=== PATIENT | female | born 1965 | race African-American/Black ===

== ENCOUNTER → 2016-09-22 | Outpatient (CLI) | payer OTHER | LOC: HYPER 07:05 | DX: I87.331 Chronic venous hypertension (idiopathic) with ulcer and inflammation of right lower extremity (principal); L97.211 Non-pressure chronic ulcer of right calf limited to breakdown of skin; I82.502 Chronic embolism and thrombosis of unspecified deep veins of left lower extremity; E66.01 Morbid (severe) obesity due to excess calories ==

== ENCOUNTER → 2016-10-08 | Outpatient (CLI) | payer OTHER | LOC: ULTRA 11:33 | DX: I82.503 Chronic embolism and thrombosis of unspecified deep veins of lower extremity, bilateral (principal); I87.331 Chronic venous hypertension (idiopathic) with ulcer and inflammation of right lower extremity; Z97.14 Presence of artificial left leg (complete) (partial) ==

== ENCOUNTER → 2016-10-15 | Outpatient (CLI) | payer OTHER | LOC: HYPER | DX: I87.331 Chronic venous hypertension (idiopathic) with ulcer and inflammation of right lower extremity (principal); L97.211 Non-pressure chronic ulcer of right calf limited to breakdown of skin; I82.502 Chronic embolism and thrombosis of unspecified deep veins of left lower extremity; E66.01 Morbid (severe) obesity due to excess calories; F15.90 Other stimulant use, unspecified, uncomplicated ==

== ENCOUNTER → 2016-10-15 | Outpatient (CLI) | payer OTHER | LOC: ULTRA 13:13 | DX: L97.212 Non-pressure chronic ulcer of right calf with fat layer exposed (principal) ==

== ENCOUNTER → 2016-10-22 | Outpatient (CLI) | payer OTHER | LOC: HYPER 07:01 | DX: I87.331 Chronic venous hypertension (idiopathic) with ulcer and inflammation of right lower extremity (principal); L97.212 Non-pressure chronic ulcer of right calf with fat layer exposed; E66.01 Morbid (severe) obesity due to excess calories; I82.502 Chronic embolism and thrombosis of unspecified deep veins of left lower extremity; Z68.44 Body mass index [BMI] 60.0-69.9, adult ==

== ENCOUNTER → 2016-11-05 | Outpatient (CLI) | payer OTHER | LOC: HYPER 07:18 | DX: I87.331 Chronic venous hypertension (idiopathic) with ulcer and inflammation of right lower extremity (principal); L97.211 Non-pressure chronic ulcer of right calf limited to breakdown of skin; I82.502 Chronic embolism and thrombosis of unspecified deep veins of left lower extremity; E66.01 Morbid (severe) obesity due to excess calories ==

== ENCOUNTER → 2016-11-19 | Outpatient (CLI) | payer OTHER | LOC: HYPER 07:03 | DX: I87.331 Chronic venous hypertension (idiopathic) with ulcer and inflammation of right lower extremity (principal); L97.212 Non-pressure chronic ulcer of right calf with fat layer exposed; E66.01 Morbid (severe) obesity due to excess calories; Z86.718 Personal history of other venous thrombosis and embolism; Z68.44 Body mass index [BMI] 60.0-69.9, adult ==

== ENCOUNTER 2016-12-18 20:12 | Inpatient (IN) | payer OTHER ==
[~2016-12-18] VITALS: Ht 170.2 cm; Wt 205.5 kg
[2016-12-18 20:13] VITALS: BP 78/34
[2016-12-18] MEDS ORDERED: WELLBUTRIN 75 M75 M1 PO (20:54)
[2016-12-18] MEDS ORDERED: NEURONTIN 300300 M1 PO (20:56)
[2016-12-18] MEDS ORDERED: FLEXERIL PO (20:56)
[2016-12-18] MEDS ORDERED: LIDODERM 5%1 PATC1 TRANSDERM (20:56)
[2016-12-18] MEDS ORDERED: IRON325 PO (20:56)
[2016-12-18] MEDS ORDERED: HYDROCHLOROTHIA25 M2 PO (20:56)
[2016-12-18] MEDS ORDERED: MIRALAX17 GM PO (20:57)
[2016-12-18] MEDS ORDERED: MOBIC15 MG PO (20:57)
[2016-12-18] MEDS ORDERED: OXYCONTIN10 M1 PO (20:57)
[2016-12-18] MEDS ORDERED: TUMS PO (20:58)
[2016-12-18] MEDS ORDERED: VITAMIN C1000 MG PO (20:58)
[2016-12-18] MEDS ORDERED: XARELTO20 MG PO (20:58)
[2016-12-18] MEDS ORDERED: CHOLECALCIFEROL PO (20:59)
[2016-12-18] MEDS ORDERED: LISINOPRIL20 MG PO (20:59)
[2016-12-18] MEDS ORDERED: CALCIUM CARBONATE PO (20:59)
[2016-12-18] MEDS ORDERED: REVIA 50 MG TAB50 M1 PO (21:00)
[2016-12-18] MEDS ORDERED: GALZIN50 MG PO (21:00)
[2016-12-18] MEDS ORDERED: HYDROCODONE-APA1 TA1 PO (21:00)
[2016-12-18] MEDS ORDERED: ASPIR 8181 MG PO (21:00)
[2016-12-18 21:42] LABS: HEMATOCRIT 24.2 % (37.0-47.0); HEMOGLOBIN 7.8 gm/dL (12.0-15.0); MANUAL DIFF YES; MCHC 32.4 g/dL (28.0-37.0); MCV 83.3 fL (80.0-100.0); PLATELET COUNT 249 thou/uL (150-400); RDW 17.9 % (10.5-14.5); WBC 14.1 thou/uL (4.0-11.0)
[2016-12-18 21:55] LABS: ANION GAP 8 mmol/L (7-16); BUN 59 mg/dL (7-18); CHLORIDE 102 mmol/L (98-107); CO2 27 mmol/L (21-32); CREATININE 4.4 mg/dL (0.6-1.0); GLUCOSE 131 mg/dL (74-106); POTASSIUM 4.4 mmol/L (3.5-5.1); SODIUM 137 mmol/L (136-145)
[2016-12-18 22:13] LABS: ALBUMIN 2.6 g/dL (3.4-5.0); ALKALINE PHOSPHATASE 68 U/L (46-116); DIRECT BILIRUBIN < 0.1 mg/dL (<0.1-0.3); SGOT 16 U/L (15-37); SGPT 15 U/L (30-65); TOTAL BILIRUBIN 0.3 mg/dL (<0.1-1.0); TOTAL PROTEIN 7.1 g/dL (6.4-8.2)
[2016-12-18 22:17] LABS: URINE BILIRUBIN 1+ (Negative); URINE BLOOD NEGATIVE (Negative); URINE COLOR YELLOW; URINE GLUCOSE-RANDOM* NEGATIVE (Negative); URINE KETONES TRACE (Negative); URINE NITRITE NEGATIVE (Negative); URINE PROTEIN (DIPSTICK) TRACE (Negative); URINE SPECIFIC GRAVITY 1.025 (1.003-1.035); URINE UROBILINOGEN 0.2 E.U./dl (0.2-1.0)
[2016-12-18 22:20] LABS: ABSOLUTE NEUTROPHILS 12.8 thou/uL (1.4-8.2); ANISOCYTOSIS 2+; TOTAL CELL COUNT 100
[2016-12-18 22:21] LABS: POLYCHROMASIA OCCASIONAL
[2016-12-18 22:24] LABS: ICTOTEST (BILI CONFIRMATORY) Negative (Negative)
[2016-12-18 22:25] LABS: SQUAMOUS 4-10 Moderate /LPF (0-3)
[2016-12-18 22:26] LABS: CASTS None Seen /LPF (None Seen); CRYSTALS None Seen /LPF (None Seen); URINE RBC None Seen /HPF (0-2)
[2016-12-18 23:50] VITALS: BP 98/52
[2016-12-19] VITALS (56 sets, daily range): BP systolic 74–137; BP diastolic 22–80
[2016-12-19 02:10] LABS: CALCIUM 8.5 mg/dL (8.5-10.1); CREATININE 3.6 mg/dL (0.6-1.0); POTASSIUM 4.3 mmol/L (3.5-5.1)
[2016-12-19 06:30] LABS: HEMATOCRIT 22.1 % (37.0-47.0); HEMOGLOBIN 7.3 gm/dL (12.0-15.0); MCH 27.1 pg (26.0-34.0); MCHC 33.1 g/dL (28.0-37.0); MCV 81.9 fL (80.0-100.0); PLATELET COUNT 227 thou/uL (150-400); RDW 17.9 % (10.5-14.5); WBC 10.5 thou/uL (4.0-11.0)
[2016-12-19 06:50] LABS: INR 1.3
[2016-12-19 06:53] LABS: APTT 53.5 Seconds (24.5-32.8); FIBRINOGEN 454.1 mg/dL (210-360); PROTIME 13.3 Seconds (9.3-11.4)
[2016-12-19 06:54] LABS: ALKALINE PHOSPHATASE 60 U/L (46-116); AMYLASE 33 U/L (25-115); ANION GAP 8 mmol/L (7-16); BUN 51 mg/dL (7-18); CHLORIDE 107 mmol/L (98-107); CO2 24 mmol/L (21-32); GLUCOSE 142 mg/dL (74-106); POTASSIUM 4.4 mmol/L (3.5-5.1); SGOT 14 U/L (15-37); SODIUM 139 mmol/L (136-145); TOTAL BILIRUBIN 0.3 mg/dL (<0.1-1.0)
[2016-12-19 06:55] LABS: ALBUMIN 2.2 g/dL (3.4-5.0); CHOLESTEROL 66 mg/dL (<200); HDL CHOLESTEROL 14 mg/dL (>40); LDL CHOLESTEROL 38 mg/dL (<100); SGPT 12 U/L (30-65); TC:HDL 4.7 Ratio (Not establshd); TOTAL PROTEIN 6.3 g/dL (6.4-8.2); TRIGLYCERIDE 71 mg/dL (<150); VLDL 14 mg/dL (<40)
[2016-12-19 07:06] LABS: MANUAL DIFF YES
[2016-12-19 07:45] LABS: ABSOLUTE NEUTROPHILS 9.1 thou/uL (1.4-8.2); ANISOCYTOSIS 1+; ATYPICAL LYMPHS 1 %; METAMYELOCYTES 1 %; TOTAL CELL COUNT 100
[2016-12-19 11:40] LABS: CALCIUM 8.2 mg/dL (8.5-10.1); CREATININE 2.9 mg/dL (0.6-1.0); POTASSIUM 4.4 mmol/L (3.5-5.1)
[2016-12-19 12:13] LABS: URINE CREATININE-RANDOM* 132.4 mg/dL
[2016-12-19 13:55] LABS: ABG SAMPLE TYPE ARTERIAL; BE(vivo) -3.1 mmol/L (-2 to +3); HCO3 21.1 mmol/L (22.0-26.0); LACTATE 1.16 mmol/L (0.5-2.0); O2(CT) 12.3 mL/dL (15.0-23.0); O2Hb 92.5 % (92.0-98.0); PCO2 34.2 mmHg (35.0-45.0); PO2 71.9 mmHg (80.0-100.0); STICK SITE R.RADIAL; pH 7.408 (7.360-7.450); sO2 94.8 % (92.0-98.0); tCO2 22.1 mmol/L (24.0-30.0)
[2016-12-19 15:46] LABS: HEMOGLOBIN 6.9 gm/dL (12.0-15.0); RBC 2.53 mil/uL (4.20-5.00)
[2016-12-19 15:47] LABS: HEMATOCRIT 21.2 % (37.0-47.0); MCH 27.3 pg (26.0-34.0); MCHC 32.5 g/dL (28.0-37.0); MCV 83.9 fL (80.0-100.0); PLATELET COUNT 200 thou/uL (150-400); RDW 17.9 % (10.5-14.5); WBC 9.6 thou/uL (4.0-11.0)
[2016-12-19 15:49] LABS: MANUAL DIFF YES
[2016-12-19 15:50] LABS: URINE BILIRUBIN NEGATIVE (Negative); URINE BLOOD 2+ (Negative); URINE COLOR YELLOW; URINE GLUCOSE-RANDOM* NEGATIVE (Negative); URINE KETONES NEGATIVE (Negative); URINE NITRITE NEGATIVE (Negative); URINE PROTEIN (DIPSTICK) 1+ (Negative); URINE SPECIFIC GRAVITY <= 1.005 (1.003-1.035); URINE UROBILINOGEN 0.2 E.U./dl (0.2-1.0)
[2016-12-19 15:55] LABS: BACTERIA 1-9 Few /HPF (None Seen); CASTS None Seen /LPF (None Seen); CRYSTALS None Seen /LPF (None Seen); SQUAMOUS 0-3 Few /LPF (0-3); URINE RBC 3-10 Few /HPF (0-2); URINE WBC 6-15 Few /HPF (0-5)
[2016-12-19 16:02] LABS: APTT 47.6 Seconds (24.5-32.8); INR 1.2; POTASSIUM 4.3 mmol/L (3.5-5.1); PROTIME 12.9 Seconds (9.3-11.4)
[2016-12-19 16:07] LABS: FIBRINOGEN 472.9 mg/dL (210-360)
[2016-12-19 16:11] LABS: CREATININE 2.5 mg/dL (0.6-1.0)
[2016-12-19 16:13] LABS: TOTAL BILIRUBIN 0.2 mg/dL (<0.1-1.0); TOTAL PROTEIN 5.8 g/dL (6.4-8.2)
[2016-12-19 16:16] LABS: ABSOLUTE NEUTROPHILS 8.2 thou/uL (1.4-8.2); ANISOCYTOSIS 1+; TOTAL CELL COUNT 100
[2016-12-19 19:05] LABS: APTT 50.1 Seconds (24.5-32.8); CALCIUM 7.3 mg/dL (8.5-10.1); CREATININE 2.2 mg/dL (0.6-1.0); INR 1.2; POTASSIUM 4.4 mmol/L (3.5-5.1); PROTIME 12.8 Seconds (9.3-11.4)
[2016-12-19 19:10] LABS: FIBRINOGEN 479.5 mg/dL (210-360)
[2016-12-19 21:51] LABS: HEMATOCRIT 25.5 % (37.0-47.0); HEMOGLOBIN 8.3 gm/dL (12.0-15.0)
[2016-12-19 22:55] LABS: CALCIUM 7.1 mg/dL (8.5-10.1); POTASSIUM 4.4 mmol/L (3.5-5.1)
[2016-12-19 23:03] LABS: APTT 48.9 Seconds (24.5-32.8); INR 1.2; PROTIME 12.5 Seconds (9.3-11.4)
[2016-12-19 23:08] LABS: FIBRINOGEN 472.9 mg/dL (210-360)
[2016-12-20] VITALS (41 sets, daily range): BP systolic 83–145; BP diastolic 33–82
[2016-12-20 04:06] LABS: GLYCOHEMOGLOBIN (HGB A1C) 6.1 % (4.8-5.6)
[2016-12-20 05:55] LABS: HEMATOCRIT 25.9 % (37.0-47.0); HEMOGLOBIN 8.6 gm/dL (12.0-15.0); MCH 27.4 pg (26.0-34.0); MCHC 33.1 g/dL (28.0-37.0); MCV 82.9 fL (80.0-100.0); PLATELET COUNT 217 thou/uL (150-400); RBC 3.12 mil/uL (4.20-5.00); RDW 17.9 % (10.5-14.5); WBC 10.7 thou/uL (4.0-11.0)
[2016-12-20 06:02] LABS: MANUAL DIFF YES
[2016-12-20 06:28] LABS: CALCIUM 7.3 mg/dL (8.5-10.1); CREATININE 1.7 mg/dL (0.6-1.0); POTASSIUM 4.3 mmol/L (3.5-5.1)
[2016-12-20 07:56] LABS: ABSOLUTE NEUTROPHILS 9.4 thou/uL (1.4-8.2); ANISOCYTOSIS 1+; TOTAL CELL COUNT 100
[2016-12-20 07:57] LABS: POIKILOCYTOSIS SLIGHT; POLYCHROMASIA OCCASIONAL
[2016-12-21 03:40] VITALS: BP 100/51
[2016-12-21 06:13] LABS: HEMATOCRIT 26.2 % (37.0-47.0); HEMOGLOBIN 8.6 gm/dL (12.0-15.0); MANUAL DIFF YES; MCH 27.2 pg (26.0-34.0); MCHC 32.8 g/dL (28.0-37.0); MCV 82.8 fL (80.0-100.0); PLATELET COUNT 209 thou/uL (150-400); RBC 3.17 mil/uL (4.20-5.00); RDW 17.7 % (10.5-14.5); WBC 9.8 thou/uL (4.0-11.0)
[2016-12-21 06:20] LABS: ALBUMIN 1.9 g/dL (3.4-5.0); CALCIUM 7.3 mg/dL (8.5-10.1); CREATININE 1.2 mg/dL (0.6-1.0); PHOSPHORUS 1.6 mg/dL (2.5-4.9); POTASSIUM 4.4 mmol/L (3.5-5.1)
[2016-12-21 06:58] LABS: ABSOLUTE NEUTROPHILS 8.4 thou/uL (1.4-8.2); PLATELET ESTIMATE NORMAL; TOTAL CELL COUNT 100
[2016-12-21 07:24] VITALS: BP 105/52
[2016-12-21 11:24] VITALS: BP 106/55
[2016-12-21 15:22] VITALS: BP 112/90
[2016-12-21 20:07] VITALS: BP 144/80
[2016-12-22 04:23] VITALS: BP 121/58
[2016-12-22 05:52] LABS: HEMATOCRIT 27.4 % (37.0-47.0); HEMOGLOBIN 8.9 gm/dL (12.0-15.0); MCH 27.1 pg (26.0-34.0); MCHC 32.6 g/dL (28.0-37.0); MCV 83.2 fL (80.0-100.0); RBC 3.29 mil/uL (4.20-5.00); WBC 8.8 thou/uL (4.0-11.0)
[2016-12-22 06:15] LABS: CALCIUM 7.3 mg/dL (8.5-10.1); CREATININE 1.3 mg/dL (0.6-1.0); POTASSIUM 4.5 mmol/L (3.5-5.1)
[2016-12-22 07:19] VITALS: BP 114/50
[2016-12-22 11:22] VITALS: BP 128/69
[2016-12-22 15:15] VITALS: BP 109/57
[2016-12-22 19:24] VITALS: BP 134/60
[2016-12-23 03:50] VITALS: BP 112/59
[2016-12-23 07:29] VITALS: BP 101/71
[2016-12-23 16:59] VITALS: BP 122/66
[2016-12-23 19:39] VITALS: BP 111/58
[2016-12-24 04:14] VITALS: BP 114/55
[2016-12-24 08:05] VITALS: BP 138/65
[2016-12-24 10:08] LABS: HEMATOCRIT 25.2 % (37.0-47.0); HEMOGLOBIN 8.3 gm/dL (12.0-15.0); MCH 27.2 pg (26.0-34.0); MCHC 32.8 g/dL (28.0-37.0); MCV 82.9 fL (80.0-100.0); RBC 3.05 mil/uL (4.20-5.00); WBC 16.8 thou/uL (4.0-11.0)
[2016-12-24 10:17] LABS: CALCIUM 7.7 mg/dL (8.5-10.1); CREATININE 1.1 mg/dL (0.6-1.0)
[2016-12-24 11:10] VITALS: BP 127/75
[2016-12-24 15:45] VITALS: BP 126/75
[2016-12-24 20:00] VITALS: BP 123/64
[2016-12-25 04:00] VITALS: BP 123/67
[2016-12-25 07:15] VITALS: BP 135/66
[2016-12-25 10:28] LABS: HEMATOCRIT 26.2 % (37.0-47.0); HEMOGLOBIN 8.4 gm/dL (12.0-15.0); MCH 26.7 pg (26.0-34.0); MCHC 32.2 g/dL (28.0-37.0); RBC 3.16 mil/uL (4.20-5.00); RDW 18.4 % (10.5-14.5); WBC 13.7 thou/uL (4.0-11.0)
[2016-12-25 10:38] LABS: CALCIUM 8.3 mg/dL (8.5-10.1); CREATININE 0.9 mg/dL (0.6-1.0); POTASSIUM 3.8 mmol/L (3.5-5.1)
[2016-12-25 12:35] VITALS: BP 147/78
[2016-12-25] MEDS ORDERED: CEPHALEXIN 500500 M3 PO (16:52)
[2016-12-25] MEDS ORDERED: DOXYCYCLINE 10100 MG PO (16:52)
[2016-12-25] MEDS ORDERED: DUONEB 2.5-0.5 M3 ML INH (16:53)
== END 2016-12-25 19:10 | DRG 871 ==
LOC: ER 20:12 → 4W 22:36 → EROBS 22:36 → 2N 22:36 → ICU 12-19 12:40 → 4W 12-20 12:46
PROVIDERS: Emergency Medicine; Hospitalist; Internal Medicine; Internal Medicine Infectious Disease; Nurse Practitioner Family
PROC: 02HV33Z Insertion of Infusion Device into Superior Vena Cava, Percutaneous Approach (ICD-10-PCS; 2016-12-18)
PROC: 30233N1 Transfusion of Nonautologous Red Blood Cells into Peripheral Vein, Percutaneous Approach (ICD-10-PCS; 2016-12-19)
PROC: 02PYX3Z Removal of Infusion Device from Great Vessel, External Approach (ICD-10-PCS; principal; 2016-12-24)
DX: A41.9 Sepsis, unspecified organism (principal); R65.21 Severe sepsis with septic shock; E43 Unspecified severe protein-calorie malnutrition; N17.0 Acute kidney failure with tubular necrosis; J96.01 Acute respiratory failure with hypoxia; N39.0 Urinary tract infection, site not specified; L03.115 Cellulitis of right lower limb; Z68.45 Body mass index [BMI] 70 or greater, adult; E66.01 Morbid (severe) obesity due to excess calories; I83.022 Varicose veins of left lower extremity with ulcer of calf; I10 Essential (primary) hypertension; G47.33 Obstructive sleep apnea (adult) (pediatric); I87.2 Venous insufficiency (chronic) (peripheral); D64.9 Anemia, unspecified; J44.9 Chronic obstructive pulmonary disease, unspecified; B95.62 Methicillin resistant Staphylococcus aureus infection as the cause of diseases classified elsewhere; B96.4 Proteus (mirabilis) (morganii) as the cause of diseases classified elsewhere; Z79.899 Other long term (current) drug therapy; Z83.3 Family history of diabetes mellitus; Z82.49 Family history of ischemic heart disease and other diseases of the circulatory system; Z99.81 Dependence on supplemental oxygen
CPT/HCPCS: 10045; 10078; 10081; 27000

== ENCOUNTER → 2017-02-19 | Outpatient (CLI) | payer OTHER ==
[~2017-02-19] MED LIST: ASPIR 8181 MG PO; CALCIUM CARBONATE PO; CEPHALEXIN 500500 M3 PO; CHOLECALCIFEROL PO; DOXYCYCLINE 10100 MG PO; DUONEB 2.5-0.5 M3 ML INH; FLEXERIL PO; GALZIN50 MG PO; HYDROCHLOROTHIA25 M2 PO; HYDROCODONE-APA1 TA1 PO; IRON325 PO; LIDODERM 5%1 PATC1 TRANSDERM; LISINOPRIL20 MG PO; MIRALAX17 GM PO; MOBIC15 MG PO; NEURONTIN 300300 M1 PO; OXYCONTIN10 M1 PO; REVIA 50 MG TAB50 M1 PO; TUMS PO; VITAMIN C1000 MG PO; WELLBUTRIN 75 M75 M1 PO; XARELTO20 MG PO
== END ==
LOC: HYPER 07:00
DX: I87.331 Chronic venous hypertension (idiopathic) with ulcer and inflammation of right lower extremity (principal); L97.212 Non-pressure chronic ulcer of right calf with fat layer exposed; E66.01 Morbid (severe) obesity due to excess calories; I82.502 Chronic embolism and thrombosis of unspecified deep veins of left lower extremity

== ENCOUNTER → 2017-03-23 | Outpatient (CLI) | payer OTHER | LOC: HYPER 02-11 07:03 | DX: I87.331 Chronic venous hypertension (idiopathic) with ulcer and inflammation of right lower extremity (principal); L97.212 Non-pressure chronic ulcer of right calf with fat layer exposed; E66.01 Morbid (severe) obesity due to excess calories; Z86.718 Personal history of other venous thrombosis and embolism; Z68.44 Body mass index [BMI] 60.0-69.9, adult ==

== ENCOUNTER → 2017-05-11 | Outpatient (CLI) | payer OTHER | LOC: HYPER 07:19 | DX: I87.331 Chronic venous hypertension (idiopathic) with ulcer and inflammation of right lower extremity (principal); L97.212 Non-pressure chronic ulcer of right calf with fat layer exposed; E66.01 Morbid (severe) obesity due to excess calories; I82.502 Chronic embolism and thrombosis of unspecified deep veins of left lower extremity; Z68.44 Body mass index [BMI] 60.0-69.9, adult ==

== ENCOUNTER → 2017-08-03 | Outpatient (CLI) | payer OTHER ==
[~2017-08-03] MED LIST changes: +ROCEPHIN 11 GM/1001 IV
== END ==
LOC: HYPER 06:57
DX: I87.321 Chronic venous hypertension (idiopathic) with inflammation of right lower extremity (principal); L97.812 Non-pressure chronic ulcer of other part of right lower leg with fat layer exposed; E66.01 Morbid (severe) obesity due to excess calories

== ENCOUNTER 2018-03-22 16:31 | Inpatient (IN) | payer OTHER ==
[~2018-03-22] VITALS: Ht 170.2 cm; Wt 209.3 kg
[2018-03-22] VITALS (21 sets, daily range): BP systolic 70–131; BP diastolic 26–91
--- NOTE | ~2018-03-22 | HC ---
[facility] [place] [address] CONSULTATION Name: XIN SLATER Room #: 427-P ADM IN M.R.#: [id number] Admission: 03/22/18 Attend Phys: Hai Gonzales MD Discharge: Date of : 63 Report #: [id number] THIS REPORT FOR: //name// CC: Hai DUONG SEYMOUR REASON FOR CONSULTATION: Open wound of right posterior leg with necrosis and septic shock. HISTORY OF PRESENT ILLNESS: The patient is a 52-year-old patient of Dr. Timothy Painting, who has been seen in [facility]. She suffers from morbid obesity and a chronic venous stasis ulceration of the right posterior leg. She has a history of deep vein thrombosis in the past. Leg wound has been chronic over many months. At home, she noted that her wound was getting worse and worse with increased drainage and foul smell. She was having fevers at home, felt ill, has been admitted to the medical service in [place] [address] and acute renal failure, creatinine of 3.4. Has been having increasing pain and drainage from the leg, feeling sicker and sicker, therefore admitted. She has been started on intravenous antibiotics, Zosyn and vancomycin, since admission. The patient is nondiabetic, well known to Dr. Painting. PAST MEDICAL HISTORY: Morbid obesity, chronic venous stasis ulceration of right leg, history of deep vein thrombosis, history of hypertension, history of hypothyroidism. PAST SURGICAL HISTORY: Unknown. MEDICATIONS: Include Wellbutrin, Flexeril, iron, Neurontin, hydrochlorothiazide, Lidoderm, MiraLax, OxyContin, vitamin C, Xarelto, Zestril, Galzin, and aspirin. ALLERGIES: See chart. PHYSICAL EXAMINATION: GENERAL: Shows a morbidly obese -Vietnamese woman who is alert and conversant, in no acute distress. HEENT: Mucous membranes are moist. NECK: Supple. LUNGS: Respirations are unlabored. ABDOMEN: Obese. EXTREMITIES: Examination of the extremities show 2+ edema of bilateral lower extremities. On the posterior aspect of the right calf, there is a very large deep chronic appearing ulcer measuring approximately 15 cm x 20 cm and 3 cm deep. The entire surface of the ulcer is coated with a dark black diane foul-smelling necrotic tissue. [address] [address] CONSULTATION Name: XIN SLATER Room #: 427-P ADM IN M.R.#: [id number] Admission: 03/22/18 Attend Phys: Hai Gonzales MD Discharge: Date of : 63 Report #: [id number] IMPRESSION: 1. Morbid obesity. 2. The patient is nondiabetic. 3. History of deep venous thrombosis. 4. Septic shock. 5. Acute renal failure. 6. Chronic venous stasis ulceration of right leg with secondary infection, cellulitis, and septic shock. PLAN: We will dress the wound with core strength Dakin's packing. Continue IV antibiotics. General surgery, Dr. Bernard Kline, has been consulted for consideration of operating room debridement to remove the necrotic tissue and therefore speed the process of fighting the infection by removing the septic burden. Wound care team will follow. <ELECTRONICALLY SIGNED> By: Yan Gannon MD 03/28/18 1657 1821 0012 Yan Gannon MD /nt
[~2018-03-22 16:31] MED LIST changes: -ROCEPHIN 11 GM/1001 IV
[2018-03-22 17:12] LABS: HEMATOCRIT 33.1 % (37.0-47.0); HEMOGLOBIN 10.5 gm/dL (12.0-15.0); MCH 25.5 pg (26.0-34.0); MCHC 31.7 g/dL (28.0-37.0); MCV 80.3 fL (80.0-100.0); PLATELET COUNT 261 thou/uL (150-400); RBC 4.13 mil/uL (4.20-5.00); RDW 17.4 % (10.5-14.5); WBC 19.6 thou/uL (4.0-11.0)
[2018-03-22 17:22] LABS: CALCIUM 9.4 mg/dL (8.5-10.1); CREATININE 3.4 mg/dL (0.6-1.0); POTASSIUM 4.7 mmol/L (3.5-5.1)
[2018-03-22 17:28] LABS: ALBUMIN 2.8 g/dL (3.4-5.0); TOTAL BILIRUBIN 0.6 mg/dL (<0.1-1.0)
[2018-03-22 18:01] LABS: ANISOCYTOSIS 1+; POLYCHROMASIA OCCASIONAL
[2018-03-22 19:01] LABS: APTT 36.3 Seconds (24.5-32.8); FIBRINOGEN 445.8 mg/dL (210-360); INR 1.2; PROTIME 12.4 Seconds (9.3-11.4)
[2018-03-22 19:03] LABS: BE(vivo) -3.9 mmol/L (-2 to +3); HCO3 21.1 mmol/L (22.0-26.0); pH 7.362 (7.360-7.450); sO2 68.3 % (92.0-98.0)
[2018-03-22 19:04] LABS: PO2 36.7 mmHg (80.0-100.0)
[2018-03-22 21:41] LABS: CALCIUM 8.3 mg/dL (8.5-10.1); CREATININE 3.4 mg/dL (0.6-1.0); POTASSIUM 4.3 mmol/L (3.5-5.1)
[2018-03-22 21:57] LABS: BE(vivo) -5.3 mmol/L (-2 to +3); HCO3 20.1 mmol/L (22.0-26.0); PCO2 38.3 mmHg (35.0-45.0); PO2 100.8 mmHg (80.0-100.0); pH 7.337 (7.360-7.450); sO2 97.3 % (92.0-98.0)
[2018-03-23] VITALS (46 sets, daily range): BP systolic 74–163; BP diastolic 23–93
[2018-03-23] LABS: HEMATOCRIT 30.2 % (37.0-47.0); HEMOGLOBIN 9.8 gm/dL (12.0-15.0)
[2018-03-23 00:02] LABS: URINE BILIRUBIN NEGATIVE (Negative); URINE BLOOD 3+ (Negative); URINE CLARITY CLOUDY; URINE COLOR YELLOW; URINE GLUCOSE-RANDOM* NEGATIVE (Negative); URINE KETONES TRACE (Negative); URINE NITRITE-REFLEX NEGATIVE (Negative); URINE PROTEIN (DIPSTICK) 2+ (Negative); URINE SPECIFIC GRAVITY >= 1.030 (1.005-1.035); URINE UROBILINOGEN 0.2 E.U./dl (0.2-1.0)
[2018-03-23 00:20] LABS: URINE LEUKOCYTES-REFLEX 2+ (Negative)
[2018-03-23 00:23] LABS: CASTS None Seen /LPF (None Seen); CRYSTALS None Seen /LPF (None Seen)
[2018-03-23 00:24] LABS: SQUAMOUS 4-10 Moderate /LPF (0-3); URINE RBC 3-10 Few /HPF (0-2)
[2018-03-23 00:25] LABS: AMORPHOUS URATES Moderate /LPF (None Seen); BACTERIA-REFLEX 1-9 Few /HPF (None Seen); COARSE GRANULAR CASTS 0-3 Few /LPF (None Seen); HYALINE CASTS 0-3 Few /LPF (None Seen)
[2018-03-23 01:10] LABS: CALCIUM 7.8 mg/dL (8.5-10.1); CREATININE 3.5 mg/dL (0.6-1.0); POTASSIUM 4.5 mmol/L (3.5-5.1)
[2018-03-23 05:04] LABS: ABSOLUTE NEUTROPHILS 18.2 thou/uL (1.4-8.2); BASOPHILS 0.2 % (0.0-2.0); HEMATOCRIT 29.2 % (37.0-47.0); HEMOGLOBIN 9.1 gm/dL (12.0-15.0); MCH 25.4 pg (26.0-34.0); MCHC 31.3 g/dL (28.0-37.0); MCV 81.1 fL (80.0-100.0); MONOCYTES 1.5 % (1.0-8.0); PLATELET COUNT 211 thou/uL (150-400); POLYS 94.3 % (36.0-66.0); RDW 17.5 % (10.5-14.5); WBC 19.3 thou/uL (4.0-11.0)
[2018-03-23 05:34] LABS: CALCIUM 7.7 mg/dL (8.5-10.1); CREATININE 3.9 mg/dL (0.6-1.0); MAGNESIUM 1.4 mg/dL (1.8-2.4); POTASSIUM 4.8 mmol/L (3.5-5.1)
[2018-03-23 18:52] LABS: CALCIUM 7.4 mg/dL (8.5-10.1); CREATININE 3.5 mg/dL (0.6-1.0); POTASSIUM 5.2 mmol/L (3.5-5.1)
[2018-03-24] VITALS (27 sets, daily range): BP systolic 107–1339; BP diastolic 50–116
[2018-03-24 05:34] LABS: ABSOLUTE NEUTROPHILS 16.9 thou/uL (1.4-8.2); BASOPHILS 0.4 % (0.0-2.0); EOSINOPHILS 3.1 % (0.0-3.0); HEMATOCRIT 29.4 % (37.0-47.0); HEMOGLOBIN 9.2 gm/dL (12.0-15.0); LYMPHOCYTES 1.3 % (24.0-44.0); MCHC 31.2 g/dL (28.0-37.0); MONOCYTES 1.6 % (1.0-8.0); PLATELET COUNT 180 thou/uL (150-400); POLYS 93.6 % (36.0-66.0); RBC 3.67 mil/uL (4.20-5.00); WBC 18.1 thou/uL (4.0-11.0)
[2018-03-24 05:43] LABS: CALCIUM 7.4 mg/dL (8.5-10.1); CREATININE 2.8 mg/dL (0.6-1.0); POTASSIUM 4.4 mmol/L (3.5-5.1)
[2018-03-24 09:37] LABS: MAGNESIUM 1.8 mg/dL (1.8-2.4)
[2018-03-25] VITALS (10 sets, daily range): BP systolic 117–153; BP diastolic 62–77
[2018-03-25 05:29] LABS: HEMATOCRIT 27.3 % (37.0-47.0); HEMOGLOBIN 8.9 gm/dL (12.0-15.0); MCH 25.7 pg (26.0-34.0); MCHC 32.5 g/dL (28.0-37.0); MCV 79.1 fL (80.0-100.0); RBC 3.45 mil/uL (4.20-5.00); RDW 18.6 % (10.5-14.5); WBC 15.1 thou/uL (4.0-11.0)
[2018-03-25 05:42] LABS: CALCIUM 7.3 mg/dL (8.5-10.1); CREATININE 1.9 mg/dL (0.6-1.0); MAGNESIUM 1.9 mg/dL (1.8-2.4); POTASSIUM 4.1 mmol/L (3.5-5.1)
[2018-03-26 04:45] VITALS: BP 140/75
[2018-03-26 06:24] LABS: HEMOGLOBIN 9.2 gm/dL (12.0-15.0); MCH 25.7 pg (26.0-34.0); MCHC 32.7 g/dL (28.0-37.0); MCV 78.4 fL (80.0-100.0); RBC 3.57 mil/uL (4.20-5.00); RDW 18.8 % (10.5-14.5)
[2018-03-26 06:31] LABS: CALCIUM 7.7 mg/dL (8.5-10.1); CREATININE 1.5 mg/dL (0.6-1.0); POTASSIUM 3.9 mmol/L (3.5-5.1)
[2018-03-26 10:30] VITALS: BP 151/87
[2018-03-26 12:20] VITALS: BP 151/83
[2018-03-26 17:12] VITALS: BP 158/80
[2018-03-26 19:35] VITALS: BP 172/79
[2018-03-26 23:07] LABS: GLYCOHEMOGLOBIN (HGB A1C) 6.5 % (4.8-5.6)
[2018-03-27 04:45] VITALS: BP 150/81
[2018-03-27 07:20] VITALS: BP 139/64
[2018-03-27 07:34] LABS: HEMOGLOBIN 8.9 gm/dL (12.0-15.0); MCH 25.7 pg (26.0-34.0); MCHC 32.7 g/dL (28.0-37.0); MCV 78.4 fL (80.0-100.0); RBC 3.45 mil/uL (4.20-5.00); RDW 18.3 % (10.5-14.5); WBC 19.7 thou/uL (4.0-11.0)
[2018-03-27 07:43] LABS: CALCIUM 7.8 mg/dL (8.5-10.1); CREATININE 1.3 mg/dL (0.6-1.0); POTASSIUM 4.2 mmol/L (3.5-5.1)
[2018-03-27 19:50] VITALS: BP 155/76
[2018-03-28 04:57] VITALS: BP 147/79
[2018-03-28 07:27] LABS: HEMATOCRIT 26.1 % (37.0-47.0); HEMOGLOBIN 8.8 gm/dL (12.0-15.0); MCH 26.7 pg (26.0-34.0); MCHC 33.5 g/dL (28.0-37.0); MCV 79.5 fL (80.0-100.0); RBC 3.29 mil/uL (4.20-5.00); RDW 18.6 % (10.5-14.5); WBC 23.5 thou/uL (4.0-11.0)
[2018-03-28 07:28] VITALS: BP 151/79
[2018-03-28 07:37] LABS: CALCIUM 8.1 mg/dL (8.5-10.1); CREATININE 1.1 mg/dL (0.6-1.0); POTASSIUM 4.1 mmol/L (3.5-5.1)
[2018-03-28 19:15] VITALS: BP 178/83
[2018-03-29 04:11] VITALS: BP 141/79
[2018-03-29 05:59] LABS: HEMATOCRIT 26.9 % (37.0-47.0); HEMOGLOBIN 8.5 gm/dL (12.0-15.0); MCH 25.2 pg (26.0-34.0); MCHC 31.8 g/dL (28.0-37.0); MCV 79.5 fL (80.0-100.0); RBC 3.38 mil/uL (4.20-5.00); RDW 18.8 % (10.5-14.5); WBC 23.1 thou/uL (4.0-11.0)
[2018-03-29 06:14] LABS: CALCIUM 8.1 mg/dL (8.5-10.1); CREATININE 1.1 mg/dL (0.6-1.0); POTASSIUM 4.1 mmol/L (3.5-5.1)
[2018-03-29 09:51] VITALS: BP 154/78
[2018-03-29 19:58] VITALS: BP 164/74
[2018-03-30 04:51] VITALS: BP 144/83
[2018-03-30 06:16] LABS: HEMATOCRIT 28.9 % (37.0-47.0); HEMOGLOBIN 9.1 gm/dL (12.0-15.0); MCH 25.4 pg (26.0-34.0); MCHC 31.6 g/dL (28.0-37.0); MCV 80.5 fL (80.0-100.0); RBC 3.59 mil/uL (4.20-5.00); RDW 18.5 % (10.5-14.5)
[2018-03-30 06:27] LABS: CALCIUM 8.3 mg/dL (8.5-10.1); POTASSIUM 4.1 mmol/L (3.5-5.1)
[2018-03-30 07:05] VITALS: BP 161/80
[2018-03-30 12:50] LABS: URINE BILIRUBIN NEGATIVE (Negative); URINE BLOOD 2+ (Negative); URINE CLARITY CLEAR; URINE COLOR YELLOW; URINE GLUCOSE-RANDOM* NEGATIVE (Negative); URINE KETONES NEGATIVE (Negative); URINE LEUKOCYTES-REFLEX NEGATIVE (Negative); URINE NITRITE-REFLEX NEGATIVE (Negative); URINE PROTEIN (DIPSTICK) NEGATIVE (Negative); URINE UROBILINOGEN 0.2 E.U./dl (0.2-1.0)
[2018-03-30 13:11] LABS: SQUAMOUS 4-10 Moderate /LPF (0-3)
[2018-03-30 13:12] LABS: CASTS None Seen /LPF (None Seen); CRYSTALS None Seen /LPF (None Seen)
[2018-03-30 13:13] LABS: BACTERIA-REFLEX 1-9 Few /HPF (None Seen); URINE WBC-REFLEX 0-5 Rare /HPF (0-5)
[2018-03-30 16:48] VITALS: BP 146/80
[2018-03-30 19:11] VITALS: BP 152/69
[2018-03-31 04:30] VITALS: BP 158/92
[2018-03-31 07:12] VITALS: BP 162/84
[2018-03-31 10:42] LABS: HEMATOCRIT 30.8 % (37.0-47.0); HEMOGLOBIN 9.7 gm/dL (12.0-15.0); MCH 24.9 pg (26.0-34.0); MCHC 31.6 g/dL (28.0-37.0); MCV 78.8 fL (80.0-100.0); RBC 3.91 mil/uL (4.20-5.00); RDW 18.5 % (10.5-14.5); WBC 23.1 thou/uL (4.0-11.0)
[2018-03-31 10:53] LABS: ALBUMIN 2.2 g/dL (3.4-5.0); CALCIUM 8.9 mg/dL (8.5-10.1); CREATININE 1.1 mg/dL (0.6-1.0); MAGNESIUM 1.9 mg/dL (1.8-2.4); POTASSIUM 4.4 mmol/L (3.5-5.1); TOTAL BILIRUBIN 0.3 mg/dL (<0.1-1.0); TOTAL PROTEIN 6.7 g/dL (6.4-8.2)
[2018-03-31 16:39] VITALS: BP 144/82
[2018-03-31 19:29] VITALS: BP 141/71
[2018-04-01 04:17] VITALS: BP 137/77
[2018-04-01 04:57] LABS: HEMATOCRIT 29.7 % (37.0-47.0); HEMOGLOBIN 9.4 gm/dL (12.0-15.0); MCH 25.2 pg (26.0-34.0); MCHC 31.6 g/dL (28.0-37.0); MCV 79.6 fL (80.0-100.0); RBC 3.73 mil/uL (4.20-5.00); RDW 18.2 % (10.5-14.5); WBC 19.8 thou/uL (4.0-11.0)
[2018-04-01 05:09] LABS: CALCIUM 9.1 mg/dL (8.5-10.1); CREATININE 0.9 mg/dL (0.6-1.0); MAGNESIUM 1.9 mg/dL (1.8-2.4); POTASSIUM 4.7 mmol/L (3.5-5.1)
[2018-04-01 08:29] VITALS: BP 115/62
[2018-04-01 08:57] VITALS: BP 115/62
[2018-04-01] MEDS ORDERED: VITAMIN C1000 MG PO (14:52)
[2018-04-01] MEDS ORDERED: WELLBUTRIN 75 M75 M1 PO (14:52)
[2018-04-01] MEDS ORDERED: ROCEPHIN 11 GM/1001 IV (14:53)
== END 2018-04-01 15:45 | DRG 853 ==
LOC: ER 16:31 → ICU 17:45 → EROBS 17:45 → ICU 19:15 → 2N 03-25 08:20 → TBA 03-26 14:11 → 2N 03-26 14:12 → 4E 03-26 17:05
PROVIDERS: Emergency Medicine; Hospitalist; Internal Medicine; Internal Medicine Infectious Disease; Nurse Practitioner Acute Care; Nurse Practitioner Family; Surgery
PROC: 03HY32Z Insertion of Monitoring Device into Upper Artery, Percutaneous Approach (ICD-10-PCS; principal; 2018-03-23)
PROC: 0KBS0ZZ Excision of Right Lower Leg Muscle, Open Approach (ICD-10-PCS; principal; 2018-03-23)
PROC: 4A133B1 Monitoring of Arterial Pressure, Peripheral, Percutaneous Approach (ICD-10-PCS; principal; 2018-03-23)
PROC: 4A133J1 Monitoring of Arterial Pulse, Peripheral, Percutaneous Approach (ICD-10-PCS; principal; 2018-03-23)
PROC: 0KBS0ZZ Excision of Right Lower Leg Muscle, Open Approach (ICD-10-PCS; 2018-03-26)
PROC: 05HD33Z Insertion of Infusion Device into Right Cephalic Vein, Percutaneous Approach (ICD-10-PCS; 2018-03-31)
DX: A41.9 Sepsis, unspecified organism (principal); R65.21 Severe sepsis with septic shock; J96.01 Acute respiratory failure with hypoxia; N17.0 Acute kidney failure with tubular necrosis; L03.115 Cellulitis of right lower limb; E46 Unspecified protein-calorie malnutrition; L97.919 Non-pressure chronic ulcer of unspecified part of right lower leg with unspecified severity; Z68.45 Body mass index [BMI] 70 or greater, adult; I10 Essential (primary) hypertension; E66.01 Morbid (severe) obesity due to excess calories; E03.9 Hypothyroidism, unspecified; D64.9 Anemia, unspecified; I87.2 Venous insufficiency (chronic) (peripheral); S81.801A Unspecified open wound, right lower leg, initial encounter; X58.XXXA Exposure to other specified factors, initial encounter; I95.9 Hypotension, unspecified; Z28.21 Immunization not carried out because of patient refusal; Z86.718 Personal history of other venous thrombosis and embolism; Z83.3 Family history of diabetes mellitus; Z82.49 Family history of ischemic heart disease and other diseases of the circulatory system; Z79.82 Long term (current) use of aspirin; Z79.899 Other long term (current) drug therapy; Y93.89 Activity, other specified; Y92.89 Other specified places as the place of occurrence of the external cause; Y99.8 Other external cause status
CPT/HCPCS: 10078; 10081; 10783; 27000; 50010; 50101; 50386; 50403; 51412; 57119; 57120; 57138; 57143; 62110; 62850; 70005

== ENCOUNTER 2018-04-01 11:27 | Inpatient (IN) | payer OTHER ==
[~2018-04-01] VITALS: Ht 170.2 cm; Wt 210.5 kg
--- NOTE | ~2018-04-01 | HC ---
[facility] [place] [address] CONSULTATION Name: XIN SLATER Room #: 516-1 ADM IN M.R.#: [id number] Admission: 04/01/18 Attend Phys: Gregor Montelongo MD Discharge: Date of : 63 Report #: [id number] THIS REPORT FOR: //name// CC: Gregor DUONG SEYMOUR DATE OF SERVICE: 04/04/2018 TURNER OFF: Gregor Gonzalez, PhD. REASON FOR CONSULTATION: To provide information for treatment planning on the rehabilitation unit for this patient. HISTORY OF PRESENT ILLNESS: The patient is a 52-year-old morbidly obese, female admitted to [facility] due to sepsis, acute hypoxic respiratory failure, right lower extremity venous stasis ulcer, and acute renal failure. She was later admitted to the rehabilitation unit on 04/01/2018 with the plan being to restore her ability to use her walker and accomplish independent transfers at a level high enough that she can return to independent living in her apartment, where she lives with her significant other and her daughter. METHODS: The unit staff were consulted, history and physical was reviewed, clinical interview was conducted and a mini mental status exam 2 was utilized. RESULTS: The patient was seated in a chair in her room. When interviewed, she was alert and cooperative with the examination. She was able to relate recent and remote personal history, including her occupational history and family history. Her mood was self-reported to be euthymic, though she admitted to situational anxiety. There were no indicators of ongoing psychotic processes or hallucinations. Her speech was well organized and goal directed. She expressed eagerness to recover and return home. On the mini mental status exam 2, the patient scored at the borderline level of mental status, due to inability to remember 2/3 previously registered words after 1 minute, and due to her refusal to attempt the serial 7 subtraction task. This refusal may have been related to anxiety, and it is not clear whether she is not able to perform simple calculations. DIAGNOSIS AND PLAN: Adjustment disorder with anxiety, and it is recommended that supportive and cognitive therapy be supplied to alleviate her situational anxiety. <ELECTRONICALLY SIGNED> By: Gregor Gonzalez, PhD 04/16/18 1445 1453 [id number] Gregor Gonzalez, PhD /nt
--- NOTE | ~2018-04-01 | H ---
[facility] [place] [address] HISTORY AND PHYSICAL Name: XIN SLATER Room #: 516-1 ADM IN M.R.#: [id number] Admission: 04/01/18 Attend Phys: Gregor Montelongo MD Discharge: Date of : 63 Report #: [id number] THIS REPORT FOR: //name// CC: Gregor SIERRAELIDIA HUMPHREYSOUR DATE OF SERVICE: 04/01/2018 POSTADMISSION PHYSICIAN EVALUATION HISTORY OF PRESENT ILLNESS: The patient is a 52-year-old -Citizen [place] morbidly obese female originally admitted to [facility] on 03/22/2018 with septic shock, infected right leg wound, elevated troponin, history of Proteus and MRSA. She underwent I and D with graft placement on 03/26/2018, for the right lower extremity. She had significant leukocytosis that is improving. Wound care is involved. She was treated for severe sepsis. Her respiratory failure, improved/resolved. She also had acute renal failure, possibly due to acute tubular necrosis with hypertension, which has been stabilized. She is being treated for hypertension. She has a history of a DVT and Xarelto was restarted. She has improved as far as her therapy tolerance and has now been admitted for acute in-hospital inpatient rehabilitation. Please see the full admission note dictation from Sarah Guerin, nurse practitioner. PAST MEDICAL HISTORY: See the history and physical. ALLERGIES: See the history and physical. CODE STATUS: See the history and physical. SOCIAL HISTORY: See the history and physical. She does have 7 steps in her apartment and lives with her significant other and an 18-year-old daughter. MEDICATIONS: Please see the full medication listing. This includes vitamins, herbals, and supplements. REVIEW OF SYSTEMS: Did not offer any current complaints of chest pain, shortness of breath, or abdominal discomfort. PHYSICAL EXAMINATION: GENERAL: She is a pleasant, alert, morbidly obese 52-year-old -[place]izen [place] female in no obvious distress. Height 5 feet 7 inches, weight 461 pounds. She is on room air. HEENT: Appeared to be benign. CHEST: Some decreased breath sounds, otherwise sounded clear. CARDIAC: Regular rate and rhythm. ABDOMEN: Morbidly obese, bowel sounds positive, nontender. [address] [address] HISTORY AND PHYSICAL Name: XIN SLATER Room #: 516-1 ADM IN M.R.#: [id number] Admission: 04/01/18 Attend Phys: Gregor Montelongo MD Discharge: Date of : 63 Report #: [id number] GENITOURINARY AND RECTAL: Deferred. NEUROLOGIC: She has functional range of motion of both upper extremities. Strength is a grade 4-/5, equal data modeler bilaterally. Lower extremities, can lift bilateral lower extremities against gravity. She has a large posterior calf venous stasis ulcer on the right lower extremity, dressing in place. She has been min assist for sit to stand. Negative Homans. ASSESSMENT: 1. Medical complex with generalized debilitation. 2. Severe sepsis. 3. Chronic venous stasis ulceration of the right lower extremity, status post debridement and Primatrix graft placement on 03/26/2018. 4. Leukocytosis, improving. 5. Respiratory failure, improved. 6. Acute renal failure, improved/resolved. 7. Hypertension. 8. History of deep venous thrombosis. 9. Chronic knee and back pain. 10. Morbid obesity. PLAN: The patient has been admitted for acute in-hospital inpatient rehabilitation. From a postadmission physician evaluation perspective, there are no relevant changes since the preadmission screening. Please see the above review of prior and current medical and functional conditions and comorbidities. Please see the patient's previous and current functional status. As far as risk of complication, she has multiple medical comorbidities as noted above. Initial plan of care involves the interdisciplinary acute inpatient rehabilitation program with the goal of maximizing her functional independence, so she can hopefully return back to her prior living situation. Measurable functional goals would be for the patient to become modified independent with transfers, mobility, ADLs, so she can return back to the home setting. Prognosis is reasonably good with estimated length of stay probably at least 10 days to 2 weeks and likely longer if needed. Potential barriers would include the multiple medical comorbidities and decreased functional status. The patient meets diagnostic criteria for an acute in-hospital inpatient rehabilitation stay. She meets the medical necessity criteria and we will have the multiple crm consultant physicians continue to follow. She does have the tolerance for therapies and has appropriate discharge goals back to the home setting. <ELECTRONICALLY SIGNED> By: Gregor Montelongo MD 04/14/18 1319 0808 [id number] Gregor Montelongo MD /nt
--- NOTE | ~2018-04-01 | PLAN ---
[facility] [place] [address] REHAB UNIT PLAN OF CARE Name: XIN SLATER Room #: 516-1 ADM IN M.R.#: [id number] Admission: 04/01/18 Attend Phys: Gregor Monetlongo MD Discharge: Date of : 63 Report #: [id number] THIS REPORT FOR: //name// CC: Gregor KWAN DATE OF SERVICE: 04/03/2018 PROGRESS NOTE/OVERALL PLAN OF CARE The patient was seen earlier this a.m. Last recorded temperature was 36.6, pulse 95, respirations 14, blood pressure 108/64. She was sleepy, responsive. Right lower extremity dressing in place. stand pivot transfers. She is mod assist in physical therapy with gait min assist 10 feet with a front-wheeled walker. In occupational therapy, she has been dependent for socks and hose. ASSESSMENT: 1. Medical complexity with generalized debilitation. 2. Severe sepsis. 3. Chronic venous stasis ulceration of the right lower extremity, status post debridement and graft placement, 03/26/2018. 4. Leukocytosis. 5. Respiratory failure, improved/resolved. 6. Acute renal failure, improved/resolved. 7. Hypertension. 8. History of deep venous thrombosis. 9. Chronic knee and back pain. 10. Morbid obesity. PLAN: The overall plan of care is based on the preadmission screen, post-admission physician evaluation and information garnered from therapy assessments. 1. Estimated length of stay is probably at least 10 days to 2 weeks pending progress. 2. Medical prognosis is reasonably good. 3. Anticipated interventions includes the interdisciplinary acute inpatient rehabilitation program. 4. Anticipated functional outcomes would be for the patient to become modified independent with transfers, mobility and ADLs at least at the walker level as she was utilizing premorbidly. 5. Discharge destination would be back to her apartment with her significant other and her daughter. 6. Expected therapy by discipline includes PT and OT 1-1/2 hours per day each [address] [address] REHAB UNIT PLAN OF CARE Name: XIN SLATER Room #: 516-1 [facility] IN ..#: [id number] Admission: 04/01/18 Attend Phys: Gregor Montelongo MD Discharge: Date of : 63 Report #: [id number] five days a week throughout the duration of the acute inpatient rehabilitation stay. <ELECTRONICALLY SIGNED> By: Gregor Montelongo MD 04/14/18 1319 1433 0540 Gregor Montelongo MD /nt
--- NOTE | ~2018-04-01 | H ---
[facility] [place] [address] HISTORY AND PHYSICAL Name: XIN SLATER Room #: 516-1 ADM IN M.R.#: [id number] Admission: 04/01/18 Attend Phys: Gregor Montelongo MD Discharge: Date of : 63 Report #: [id number] THIS REPORT FOR: //name// CC: Gregor SIERRAELIDIA HUMPHREYSOUR DATE OF SERVICE: 04/01/2018 HISTORY OF PRESENT ILLNESS: This is a 52-year-old morbidly obese female who was admitted to [facility] with sepsis, acute hypoxic respiratory failure, right lower extremity venous stasis ulcer and acute renal insufficiency. She underwent I and D with graft placement on 03/26/2018 for the right lower extremity. She has had significant leukocytosis that is improving. Her wound is improving per Wound Care physician. Due to her generalized debility, she is now being admitted to acute inpatient rehabilitation to improve her functional mobility. Today, the patient reports pain in her right lower extremity, especially with dressing changes. She has chronic pains in bilateral knees. She has spasms down bilateral legs. She has chronic back and hip pain. She denies cough, shortness of air, chest pain, nausea or abdominal pain. She is constipated. It has been 6 days since her last bowel movement. PAST MEDICAL HISTORY: Morbid obesity, chronic venous stasis ulceration of the right leg for over 1 year, history of DVT, hypertension, hypothyroidism, degenerative joint disease. SOCIAL HISTORY: The patient lives in an apartment with her significant other and her 18-year-old daughter. There are 7 steps to get into her apartment and then all living on one level after that. She utilized a front-wheel walker premorbidly. She walked very short distances. ALLERGIES: No known drug allergies. CURRENT MEDICATIONS: Lisinopril 20 mg daily, Xarelto 20 mg daily, hydrochlorothiazide 25 mg daily, Rocephin 1 gram IV piggyback daily, morphine Silvadene topical cream, vitamin C 1000 mg daily, calcium carbonate 500 mg daily, oxycodone 10 mg twice a day, Wellbutrin 75 mg twice a day, gabapentin 300 mg 3 times a day, ferrous sulfate 325 mg 3 times a day, Voltaren gel p.r.n. q.i.d., Flexeril 5 mg q.8 hours p.r.n., Flexeril 10 mg at bedtime p.r.n., Tylenol 650 q.6 hours p.r.n., fentanyl 25-50 mcg q.4 hours p.r.n., DuoNebs q.4 hours inhalation, MiraLax 17 grams daily. CODE STATUS: Full code. REVIEW OF SYSTEMS: Remainder of 14-point review of systems negative except as listed in HPI. [address] [address] HISTORY AND PHYSICAL Name: XIN SLATER Room #: 516-1 ADM IN M.R.#: [id number] Admission: 04/01/18 Attend Phys: Gregor Montelongo MD Discharge: Date of : 63 Report #: [id number] PHYSICAL EXAMINATION: VITAL SIGNS: 115/62, pulse 79, temperature 98.7, respirations 17. She has 95% oxygen on room air. GENERAL: She is awake, alert. She is oriented x 4. She is very pleasant. She is in no acute distress. She is on room air. HEAD: Normocephalic. EYES: EOMs are intact. No icterus. ENT: No sinus tenderness. CHEST: Lungs are diminished in bases, but no crackle or wheeze. CARDIAC: S1, S2, regular rate and rhythm. ABDOMEN: Morbid obesity. Bowel sounds are positive. She is soft. No tenderness to palpation. GENITOURINARY: No CVA tenderness. She has a Berumen catheter with clear yellow urine output in her bag. EXTREMITIES: The patient has functional range of motion in bilateral upper extremities. Strength is grossly 4-/5 bilaterally. There is no clonus. Equal milled lumber grader strength bilateral. Able to lift bilateral lower extremity into gravity off of bed. Negative Homans sign. She has significant venous stasis bilateral lower extremities. She has a large posterior calf venous stasis ulcer on the right lower extremity. The patient is transferring min assist for her sit to stand. She ambulated 8 steps with min assist for balance. Bathe is mod assist. SKIN: As noted, the wound to the right lower extremity. She also has two central lines in place, right upper extremity and right chest wall. PSYCHIATRIC: Pleasant affect. NEUROLOGIC: Cranial nerves 2-12 grossly intact. LABORATORY DATA: From 04/01/2018, sodium 136, potassium 4.7, BUN 31, creatinine 0.9, mag 1.9. WBC is 19.8, hemoglobin 9.4, hematocrit 29.7, platelets 262. ASSESSMENT: 1. Medical complexity with generalized debilitation. 2. Severe sepsis. 3. Chronic venous stasis ulceration of right lower extremity, status post debridement and PriMatrix graft placement on 03/26/2018. 4. Leukocytosis, improving. 5. Respiratory failure, improving. 6. Acute renal failure. 7. Hypertension. 8. History of deep venous thrombosis. 9. Chronic knee and back pain. 10. Morbid obesity. PLAN: The patient will be admitted to acute inpatient rehabilitation for physical and occupational therapies with a goal to get back to her home. She will have multiple hospital consultants continue to follow her including Wound Care physician and student records coordinator. We will follow up lab work in the [facility] [address] [place] [address] HISTORY AND PHYSICAL Name: XNI SLATER Room #: 516-1 ADM IN M.R.#: [id number] Admission: 04/01/18 Attend Phys: Gregor Montelongo MD Discharge: Date of : 63 Report #: [id number] morning. She will continue with the Berumen catheter for now and hopefully will be able to attempt a voiding trial soon. We have ordered bariatric appointment for her room. Please see orders. <ELECTRONICALLY SIGNED> By: KAREN Dahl 04/08/18 1439 1502 1558 KAREN Dahl /nt
[2018-04-01] MEDS ORDERED: VITAMIN C1000 MG PO (14:52)
[2018-04-01] MEDS ORDERED: WELLBUTRIN 75 M75 M1 PO (14:52)
[2018-04-01] MEDS ORDERED: ROCEPHIN 11 GM/1001 IV (14:53)
[2018-04-01 19:45] VITALS: BP 139/63
[2018-04-02 07:31] VITALS: BP 136/76
[2018-04-02 19:40] VITALS: BP 134/63
[2018-04-03 09:02] VITALS: BP 108/64
[2018-04-03 12:23] LABS: HEMATOCRIT 30.4 % (37.0-47.0); HEMOGLOBIN 9.9 gm/dL (12.0-15.0); MCH 25.9 pg (26.0-34.0); MCHC 32.5 g/dL (28.0-37.0); MCV 79.6 fL (80.0-100.0); RBC 3.82 mil/uL (4.20-5.00); RDW 18.3 % (10.5-14.5); WBC 11.3 thou/uL (4.0-11.0)
[2018-04-03 12:37] LABS: ALBUMIN 2.6 g/dL (3.4-5.0); CALCIUM 9.6 mg/dL (8.5-10.1); CREATININE 1.3 mg/dL (0.6-1.0); MAGNESIUM 2.1 mg/dL (1.8-2.4); POTASSIUM 4.4 mmol/L (3.5-5.1); TOTAL BILIRUBIN 0.3 mg/dL (<0.1-1.0); TOTAL PROTEIN 7.6 g/dL (6.4-8.2)
[2018-04-03 19:40] VITALS: BP 116/60
[2018-04-04 08:50] VITALS: BP 93/56
[2018-04-04 11:20] LABS: ABSOLUTE NEUTROPHILS 4.4 thou/uL (1.4-8.2); BASOPHILS 0.5 % (0.0-2.0); EOSINOPHILS 7.4 % (0.0-3.0); HEMATOCRIT 30.4 % (37.0-47.0); HEMOGLOBIN 9.8 gm/dL (12.0-15.0); LYMPHOCYTES 36.1 % (24.0-44.0); MCH 25.9 pg (26.0-34.0); MCHC 32.2 g/dL (28.0-37.0); MCV 80.4 fL (80.0-100.0); PLATELET COUNT 266 thou/uL (150-400); RBC 3.78 mil/uL (4.20-5.00); RDW 19.4 % (10.5-14.5)
[2018-04-04 11:42] LABS: CALCIUM 9.7 mg/dL (8.5-10.1); CREATININE 1.3 mg/dL (0.6-1.0); MAGNESIUM 2.1 mg/dL (1.8-2.4); POTASSIUM 4.2 mmol/L (3.5-5.1)
[2018-04-04 12:43] LABS: ANISOCYTOSIS 2+; POLYCHROMASIA OCCASIONAL
[2018-04-04 21:50] VITALS: BP 122/56
[2018-04-05 04:30] LABS: CREATININE 1.2 mg/dL (0.6-1.0); POTASSIUM 4.3 mmol/L (3.5-5.1)
[2018-04-05 04:34] LABS: HEMATOCRIT 26.4 % (37.0-47.0); HEMOGLOBIN 8.4 gm/dL (12.0-15.0); MCH 25.4 pg (26.0-34.0); MCHC 31.7 g/dL (28.0-37.0); MCV 80.1 fL (80.0-100.0); RBC 3.3 mil/uL (4.20-5.00); RDW 18.6 % (10.5-14.5); WBC 7.8 thou/uL (4.0-11.0)
[2018-04-05 08:06] VITALS: BP 94/50
[2018-04-05 08:15] VITALS: BP 117/71
[2018-04-05 08:16] VITALS: BP 124/79
[2018-04-05 19:09] VITALS: BP 115/60
[2018-04-06 08:00] VITALS: BP 116/61
[2018-04-06 19:50] VITALS: BP 136/69
[2018-04-07 08:30] VITALS: BP 106/53
[2018-04-07 19:34] VITALS: BP 131/56
[2018-04-08 09:21] VITALS: BP 116/67
[2018-04-08 19:18] VITALS: BP 100/46
[2018-04-09 06:19] LABS: ABSOLUTE NEUTROPHILS 3.2 thou/uL (1.4-8.2); BASOPHILS 0.6 % (0.0-2.0); EOSINOPHILS 15.8 % (0.0-3.0); HEMATOCRIT 23.7 % (37.0-47.0); HEMOGLOBIN 7.8 gm/dL (12.0-15.0); LYMPHOCYTES 20.2 % (24.0-44.0); MCH 26.5 pg (26.0-34.0); MCHC 32.8 g/dL (28.0-37.0); MCV 80.8 fL (80.0-100.0); MONOCYTES 7.2 % (1.0-8.0); PLATELET COUNT 215 thou/uL (150-400); POLYS 56.2 % (36.0-66.0); RBC 2.93 mil/uL (4.20-5.00); RDW 19.2 % (10.5-14.5); WBC 5.6 thou/uL (4.0-11.0)
[2018-04-09 06:33] LABS: CALCIUM 8.7 mg/dL (8.5-10.1); CREATININE 1.8 mg/dL (0.6-1.0); MAGNESIUM 2.3 mg/dL (1.8-2.4); POTASSIUM 4.6 mmol/L (3.5-5.1)
[2018-04-09 07:40] VITALS: BP 100/48
[2018-04-09 08:19] LABS: ANISOCYTOSIS 2+; MICROCYTES 1+; PLATELET ESTIMATE NORMAL
[2018-04-09 10:33] LABS: % SATURATION 16 % (20-39); IRON 40 ug/dL (50-170); TIBC 248 ug/dL (250-450)
[2018-04-09 11:01] LABS: FOLIC ACID 10.5 ng/mL (8.6-58.9)
[2018-04-09 14:40] LABS: HEMATOCRIT 27.8 % (37.0-47.0); HEMOGLOBIN 8.8 gm/dL (12.0-15.0)
[2018-04-09 19:25] VITALS: BP 90/39
[2018-04-09 21:50] VITALS: BP 115/42
[2018-04-10 19:51] VITALS: BP 113/49
[2018-04-11 06:23] LABS: HEMATOCRIT 22.9 % (37.0-47.0); HEMOGLOBIN 7.5 gm/dL (12.0-15.0); MCH 26.8 pg (26.0-34.0); MCHC 32.9 g/dL (28.0-37.0); MCV 81.5 fL (80.0-100.0); RBC 2.81 mil/uL (4.20-5.00); RDW 19.7 % (10.5-14.5); WBC 5.3 thou/uL (4.0-11.0)
[2018-04-11 06:34] LABS: CALCIUM 9.2 mg/dL (8.5-10.1); CREATININE 1.3 mg/dL (0.6-1.0); POTASSIUM 4.5 mmol/L (3.5-5.1)
[2018-04-11 08:00] VITALS: BP 110/52
[2018-04-11 19:45] VITALS: BP 126/58
[2018-04-12 07:45] VITALS: BP 109/45
[2018-04-12 19:40] VITALS: BP 113/46
[2018-04-13 09:00] VITALS: BP 142/57
[2018-04-13 19:35] VITALS: BP 111/55
[2018-04-14 07:55] VITALS: BP 127/59
[2018-04-14 20:00] VITALS: BP 87/45
[2018-04-15 03:36] LABS: URINE BILIRUBIN NEGATIVE (Negative); URINE BLOOD 3+ (Negative); URINE CLARITY CLEAR; URINE COLOR YELLOW; URINE GLUCOSE-RANDOM* NEGATIVE (Negative); URINE KETONES NEGATIVE (Negative); URINE LEUKOCYTES-REFLEX NEGATIVE (Negative); URINE NITRITE-REFLEX NEGATIVE (Negative); URINE PROTEIN (DIPSTICK) NEGATIVE (Negative); URINE UROBILINOGEN 0.2 E.U./dl (0.2-1.0)
[2018-04-15 03:42] LABS: CASTS None Seen /LPF (None Seen); MUCUS 0-3 Light strn/LPF (None Seen); SQUAMOUS 4-10 Moderate /LPF (0-3); URINE WBC-REFLEX None Seen /HPF (0-5)
[2018-04-15 03:43] LABS: BACTERIA-REFLEX None Seen /HPF (None Seen); CRYSTALS None Seen /LPF (None Seen)
[2018-04-15 06:48] LABS: HEMATOCRIT 23.2 % (37.0-47.0); HEMOGLOBIN 7.7 gm/dL (12.0-15.0); MCH 27.5 pg (26.0-34.0); MCHC 33.2 g/dL (28.0-37.0); MCV 82.9 fL (80.0-100.0); PLATELET COUNT 258 thou/uL (150-400); RDW 21.2 % (10.5-14.5); WBC 7.4 thou/uL (4.0-11.0)
[2018-04-15 07:01] LABS: CALCIUM 9.3 mg/dL (8.5-10.1); CREATININE 1.2 mg/dL (0.6-1.0); MAGNESIUM 2.1 mg/dL (1.8-2.4); POTASSIUM 4.2 mmol/L (3.5-5.1)
[2018-04-15 07:53] LABS: ANISOCYTOSIS 2+; POLYCHROMASIA OCCASIONAL
[2018-04-15 07:56] VITALS: BP 126/56
[2018-04-15 20:25] VITALS: BP 125/41
[2018-04-16 08:00] VITALS: BP 136/66
[2018-04-16 21:23] VITALS: BP 130/58
[2018-04-17 07:53] VITALS: BP 109/46
[2018-04-17 10:25] LABS: URINE BILIRUBIN NEGATIVE (Negative); URINE BLOOD 3+ (Negative); URINE CLARITY CLEAR; URINE COLOR YELLOW; URINE GLUCOSE-RANDOM* NEGATIVE (Negative); URINE KETONES NEGATIVE (Negative); URINE LEUKOCYTES NEGATIVE (Negative); URINE NITRITE NEGATIVE (Negative); URINE PROTEIN (DIPSTICK) NEGATIVE (Negative); URINE SPECIFIC GRAVITY <= 1.005 (1.005-1.035); URINE UROBILINOGEN 0.2 E.U./dl (0.2-1.0)
[2018-04-17 10:33] LABS: SQUAMOUS 0-3 Few /LPF (0-3)
[2018-04-17 10:34] LABS: BACTERIA 1-9 Few /HPF (None Seen); CASTS None Seen /LPF (None Seen); CRYSTALS None Seen /LPF (None Seen); URINE RBC None Seen /HPF (0-2); URINE WBC None Seen /HPF (0-5)
[2018-04-17 19:45] VITALS: BP 125/48
[2018-04-18 15:26] LABS: OBSERVED RETIC COUNT 5.78 % (0.6-2.6)
[2018-04-18 15:35] LABS: % SATURATION 14 % (20-39); IRON 46 ug/dL (50-170); TIBC 322 ug/dL (250-450)
[2018-04-18 19:20] VITALS: BP 130/61
[2018-04-19 08:00] VITALS: BP 107/59
[2018-04-19 19:35] VITALS: BP 105/50
[2018-04-20 06:26] LABS: BASOPHILS 0.4 % (0.0-2.0); EOSINOPHILS 14.4 % (0.0-3.0); HEMATOCRIT 23.3 % (37.0-47.0); HEMOGLOBIN 7.5 gm/dL (12.0-15.0); LYMPHOCYTES 24.1 % (24.0-44.0); MCH 26.7 pg (26.0-34.0); MCHC 32.3 g/dL (28.0-37.0); MCV 82.7 fL (80.0-100.0); PLATELET COUNT 333 thou/uL (150-400); POLYS 53.1 % (36.0-66.0); RBC 2.81 mil/uL (4.20-5.00); RDW 22.6 % (10.5-14.5); WBC 5.7 thou/uL (4.0-11.0)
[2018-04-20 06:36] LABS: CALCIUM 9.4 mg/dL (8.5-10.1); CREATININE 1.1 mg/dL (0.6-1.0); POTASSIUM 4.5 mmol/L (3.5-5.1)
[2018-04-20 08:01] VITALS: BP 128/67
[2018-04-20 10:45] VITALS: BP 148/88
[2018-04-20 20:00] VITALS: BP 145/79
[2018-04-21 07:45] VITALS: BP 122/56
[2018-04-21 19:40] VITALS: BP 120/43
[2018-04-22 04:44] LABS: ABSOLUTE RETIC COUNT 0.1613 10^6/uL; HEMATOCRIT 25.4 % (37.0-47.0); HEMOGLOBIN 8.2 gm/dL (12.0-15.0); MCH 26.8 pg (26.0-34.0); MCHC 32.4 g/dL (28.0-37.0); MCV 82.9 fL (80.0-100.0); OBSERVED RETIC COUNT 5.26 % (0.6-2.6); RBC 3.07 mil/uL (4.20-5.00); RDW 23.2 % (10.5-14.5); WBC 6.3 thou/uL (4.0-11.0)
[2018-04-22 07:45] VITALS: BP 131/68
[2018-04-22 09:25] VITALS: BP 131/68
[2018-04-22 09:27] VITALS: BP 131/68
[2018-04-22] MEDS ORDERED: NORCO 7.5-3251 EACH PO (09:38)
[2018-04-22] MEDS ORDERED: OXYBUTYNIN 5 MG5 M2 PO (09:38)
[2018-04-22] MEDS ORDERED: SENNA PLUS TAB1 EACH PO (09:38)
[2018-04-22] MEDS ORDERED: VOLTAREN GEL 1100 G2 TOP (09:38)
[2018-04-22 11:49] VITALS: BP 131/68
[2018-04-22] MEDS ORDERED: NEURONTIN 300300 M1 PO (13:47)
[2018-04-22] MEDS ORDERED: HYDROCHLOROTHIA25 M2 PO (13:47)
[2018-04-22] MEDS ORDERED: IRON325 PO (13:47)
[2018-04-22] MEDS ORDERED: XARELTO20 MG PO (13:47)
[2018-04-22] MEDS ORDERED: GALZIN50 MG PO (13:47)
[2018-04-22] MEDS ORDERED: FLEXERIL PO (13:47)
[2018-04-22] MEDS ORDERED: MIRALAX17 GM PO (13:47)
[2018-04-22] MEDS ORDERED: WELLBUTRIN 75 M75 M1 PO (13:47)
[2018-04-22 15:10] LABS: GLOBULIN TOTAL 5.1 g/dL (2.2-3.9); M-SPIKE Not Observed g/dL (Not Observed)
[2018-04-22 16:44] VITALS: BP 131/68
[2018-04-22 16:53] VITALS: BP 131/68
== END 2018-04-22 20:29 | disposition home health service (06) | DRG 947 ==
PROVIDERS: Emergency Medicine Emergency Medical Services; Hospitalist; Internal Medicine; Internal Medicine Hematology & Oncology; Nurse Practitioner; Nurse Practitioner Family; Physical Medicine & Rehabilitation
DX: R53.81 Other malaise (principal); A41.9 Sepsis, unspecified organism; R65.21 Severe sepsis with septic shock; J96.01 Acute respiratory failure with hypoxia; N17.9 Acute kidney failure, unspecified; L97.919 Non-pressure chronic ulcer of unspecified part of right lower leg with unspecified severity; Z68.45 Body mass index [BMI] 70 or greater, adult; E66.01 Morbid (severe) obesity due to excess calories; I87.8 Other specified disorders of veins; I10 Essential (primary) hypertension; M54.9 Dorsalgia, unspecified; I83.018 Varicose veins of right lower extremity with ulcer other part of lower leg; D72.829 Elevated white blood cell count, unspecified; G89.29 Other chronic pain; E03.9 Hypothyroidism, unspecified; M19.90 Unspecified osteoarthritis, unspecified site; M17.0 Bilateral primary osteoarthritis of knee; D64.9 Anemia, unspecified; N92.4 Excessive bleeding in the premenopausal period; R39.15 Urgency of urination; D63.8 Anemia in other chronic diseases classified elsewhere; F41.8 Other specified anxiety disorders; Z53.29 Procedure and treatment not carried out because of patient's decision for other reasons; Z86.718 Personal history of other venous thrombosis and embolism; Z79.899 Other long term (current) drug therapy; Z82.49 Family history of ischemic heart disease and other diseases of the circulatory system; Z83.3 Family history of diabetes mellitus
CPT/HCPCS: 10112

== ENCOUNTER 2019-02-15 18:56 | Inpatient (IN) | payer OTHER ==
[~2019-02-15] VITALS: Ht 170.2 cm; Wt 186.0 kg
[~2019-02-15 18:56] MED LIST changes: +NORCO 7.5-3251 EACH PO; +OXYBUTYNIN 5 MG5 M2 PO; +ROCEPHIN 11 GM/1001 IV; +SENNA PLUS TAB1 EACH PO; +VOLTAREN GEL 1100 G2 TOP
[2019-02-15 18:57] VITALS: BP 155/100
[2019-02-15 20:12] LABS: BASOPHILS 0.4 % (0.0-2.0); EOSINOPHILS 1.7 % (0.0-3.0); HEMOGLOBIN 9.3 gm/dL (12.0-15.0); LYMPHOCYTES 14.2 % (24.0-44.0); MCH 24.5 pg (26.0-34.0); MCHC 31.9 g/dL (28.0-37.0); MCV 76.7 fL (80.0-100.0); MONOCYTES 4.5 % (1.0-8.0); PLATELET COUNT 398 thou/uL (150-400); POLYS 79.2 % (36.0-66.0); RBC 3.78 mil/uL (4.20-5.00); RDW 20.2 % (10.5-14.5); WBC 10.1 thou/uL (4.0-11.0)
[2019-02-15 20:25] LABS: CALCIUM 9.4 mg/dL (8.5-10.1); POTASSIUM 4.3 mmol/L (3.5-5.1)
[2019-02-15 20:39] LABS: ANISOCYTOSIS 2+; MICROCYTES 1+; POLYCHROMASIA OCCASIONAL
[2019-02-15 21:33] VITALS: BP 155/100
[2019-02-15 21:47] VITALS: BP 144/52
[2019-02-15 22:39] VITALS: BP 128/56
[2019-02-16 06:53] LABS: % SATURATION 6 % (20-39); IRON 16 ug/dL (50-170); TIBC 266 ug/dL (250-450)
--- NOTE | 2019-02-16 06:54 | NUR ---
PATIENT ALERT AND ORIENTED X4. C/O EXTREME PAIN. MED GIVEN WHEN AVAILABLE. DRESSING APPLIED TO R LEG WOUND. WOUND BED HAS YELLOW SLOUGH AND FOUL ODOR. PATIENT SLEPT LITTLE THIS SHIFT.
--- NOTE | 2019-02-16 06:57 | NUR ---
PATIENT ARRIVED ON UNIT AT 2200 VIA CART FROM ED ACCOMPAINED BY ED PERSONEL.
[2019-02-16 07:08] LABS: FOLIC ACID 14.9 ng/mL (8.6-58.9)
[2019-02-16 07:11] VITALS: BP 108/54
--- NOTE | 2019-02-16 16:21 | NUR ---
Chart reveiwed and case discussed with the care team. Surveillance Systems Analyst visited with the pt, her sisters Tavon and spouse at bedside. The pt reports that she still lives in a second story apt with 10 steps up to the apt. She lives with her dtr and spouse. She has the bariatric rwalker provided by cm from her acute rehab 5N stay las year. She [place] not [facility] [place] [facility] and does not find [facility] helpful. She reports being denied by disability twice and never got any notice from her [place] medicaid application. [employer] referral initiated. Sisters Tavon are her spokespersons per her request. They are concerned about her and feel she needs RN and medicaid. Process and criteria discussed. Discussed community clinics and options for low income adults to get health care. Pt is being seen for rt calf wound. Will ask for therapy evals to assess her mobility. Pt will likely need outpt f/u arranged [place] [facility] and medication assistance at [place]. Will follow.
[2019-02-16 20:01] VITALS: BP 106/40
--- NOTE | 2019-02-16 22:46 | NUR ---
PATIENT ALERT AND ORIENTED BUT SEDATED AT TIMES AND MUMBLES. UP TO 8+ FAMILY MEMBERS AT BEDSIDE THIS AFTERNOON AND PATIENT INTERACTING APPROPRIATELY WITH FAMILY. PATIENT SISTER HAD MANY REQUEST FOR PATIENT. SHE STATES HEATING PAD MAY HELP PATIENT CRAMPING. SISTER INVOLVED IN SOME OF CARE OF PATIENT IN ADDITION TO FAMILY MEMBER WHO IS IN NURSING SCHOOL. WOUND CARE SAW PATIENT AND PATIENT HAD CT SCAN THIS EVENING. FEMALE WICK CATHETER IS BEING USED. PATIENT WAS ABLE TO STAND AT BEDSIDE WITH WALKER WITH MOD. ASSIST WHILE STAFF CHANGED SOILED BED. PATIENT WOULD EXTREMLY PAINFUL AND WOUND CARE ORDERED IV PAIN MED PRN FOR DRESSING CHANGE. PATIENT STARTED ON REGULAR DIET TODAY. COUNTER PRESSURE ON MUSCLE SPASM HELPS. PATIENT CAN DIRECT WHERE TO APPLY PRESSURE ON SPASMS WHICH SEEM TO OCCUR ON RIGHT WOUND LEG IN HAMSTRING.
[2019-02-17 05:23] VITALS: BP 116/38
--- NOTE | 2019-02-17 05:31 | NUR ---
Assumed pt care at 1900. Pt had just gotten back from CT,wound care completed with day nurse and family members help. A few minutes after completion radiology called stating they've been trying to do US all day but she had been unavailable;informed them she had just gotten back from CT and wound care dressed since it was [employer] C[employer]IAN. Nurse informed the patient about the US and she requested not to go through dressing change again as it was required to be off for the US. Call made back to radiology and informed them of pt's request;will notify day shift nurse to alert them when pt will be ready for US.C/o pain 8/10 medicated per EMAR pt able to sleep some tonight. Dtr and spouse at the bedside for the night. Fall precautions in place,encouraged pt to call for help as needed. Will continue to monitor pt.
[2019-02-17 07:15] VITALS: BP 97/44
[2019-02-17 07:51] LABS: ALBUMIN 2.3 g/dL (3.4-5.0); CALCIUM 8.3 mg/dL (8.5-10.1); CREATININE 1.2 mg/dL (0.6-1.0); PHOSPHORUS 3.1 mg/dL (2.5-4.9); POTASSIUM 4.2 mmol/L (3.5-5.1)
--- NOTE | 2019-02-17 11:40 | HC ---
[facility] [place] [address] CONSULTATION Name: XIN SLATER Room #: 427-P ADM IN M.R.#: [id number] Admission: 02/15/19 ������������������ Attend Phys: Stella Galicia Discharge: ������������������ Date of : 63 Report #: [id number] THIS REPORT FOR: //name// CC: Stella Galicia Physician staff AD KWAN DATE OF SERVICE: 02/16/2019 CHIEF COMPLAINT: Right lower extremity ulceration with infection. HISTORY OF PRESENT ILLNESS: This is a 53-year-old female patient, whom I am familiar from care of her in 2018. She has had a longstanding issue with a large ulceration and necrosis of the right posterior leg. She is admitted to the hospital with increasing pain and drainage. It is unclear as to who has been caring for her wound. It appears that she may have been trying to take care of this alone at home. She has had increasing pain, swelling, drainage and odor. The patient has a history of hypertension and previous DVT, but has not been taking Xarelto or lisinopril. PAST MEDICAL HISTORY: Positive history of the chronic right leg wound, postmenopausal bleeding, septic shock. ALLERGIES: To LATEX. MEDICATIONS: Currently appeared to be none. She should be taking Xarelto and lisinopril, but apparently has not been doing so due to lack of any insurance coverage. SOCIAL HISTORY: The patient denies alcohol or tobacco use. FAMILY HISTORY: Positive for hypertension and diabetes. REVIEW OF SYSTEMS: CONSTITUTIONAL: The patient does complain of some fever and chills. Denies any weight loss. ENT: The patient denies earache, nasal drainage, sore throat. CARDIOVASCULAR: The patient denies chest pain, palpitations or diaphoresis. PULMONARY: The patient denies cough or shortness of breath. GASTROINTESTINAL: The patient denies nausea, vomiting, diarrhea or abdominal pain. ORTHOPEDIC: The patient complains of severe pain, swelling, drainage and odor from her right leg. Other systems in a 14-point review of systems are negative. PHYSICAL EXAMINATION: [facility] [address] [place] [address] CONSULTATION Name: XIN SLATER Room #: [address] [place] [address] IN M.R.#: [id number] Admission: 02/15/19 ������������������ Attend Phys: Stella Galicia Discharge: ������������������ Date of : 63 Report #: [id number] VITAL SIGNS: Include temperature 98.9, pulse 110, respiratory rate of 17, blood pressure 108/54. GENERAL: This is a chronically ill-appearing female patient who appears to be in moderate to severe distress. HEENT: Head normocephalic. Nose and throat are clear. NECK: Supple. LUNGS: Clear. ABDOMEN: Soft, is obese, nontender. EXTREMITIES: Lower extremities demonstrate 3+ edema of both lower extremities. She has a very large tissue defect and ulceration on the posterior right calf. It is covered with fibrinous material and green exudate and is quite foul smelling. The surrounding skin is extremely tender to palpation. Distal pulses are difficult to palpate, I think, due to edema. She did have a normal Doppler study in 2017. NEUROLOGIC: The patient is alert and oriented, moving all 4 extremities. LABORATORY DATA: Includes sodium 137, potassium 4.3, chloride 103, CO2 of 27, BUN 20, creatinine 1.0, glucose 103. CRP is 69.8. White blood cell count 10.1 with a hemoglobin 9.3. X-ray evaluation of the lower extremity demonstrates no periosteal reaction on bone. CLINICAL IMPRESSION: 1. Venous-type ulceration of the right lower extremity. 2. Right lower extremity wound infection and cellulitis. 3. Super morbid obesity. 4. History of deep vein thrombosis. 5. Hypertension. 6. Noncompliance as she has no financial means with which to procure medications or health care. RECOMMENDATIONS: At this point in time, we will order her intravenous fentanyl at least for dressing changes. It is almost impossible to change her dressing at the bedside due to the severe amount of pain. Culture and sensitivity will be ordered and obtained from the wound bed. She will need intravenous antibiotic therapy empirically until cultures have been obtained. We will consult Dr. Kline who has seen her before recommended surgical debridement with Misonix debridement, possible placement of skin substitute if seems appropriate at the time of surgery. I think with the significant size of this ulceration as well as the level of infection, I think this certainly could be limb threatening. I do not think that because of her obesity and edema that she would be a very poor candidate for a BKA or an AKA. I think she is at extremely high risk for nonhealing. [address] [address] CONSULTATION Name: XIN SLATER Room #: 427-P ADM IN M.R.#: [id number] Admission: 02/15/19 ������������������ Attend Phys: Stella Galicia Discharge: ������������������ Date of : 63 Report #: [id number] I appreciate being asked to see her again in consultation. ��������������������������������������������� <ELECTRONICALLY SIGNED> ���������������������������������������� By: Michael Mehta MD ��������������������������������������������� 02/17/19 [id number] [id number] Michael Mehta MD /nt
[2019-02-17 15:45] VITALS: BP 105/46
--- NOTE | 2019-02-17 19:38 | NUR ---
PT A&OX4, HAS NOT TRANFERED OUT OF BED TODAY. IV INTACT IN RAKEL. DRSG TO RLE CHANGED TODAY. PLANS ARE FOR PT TO HAVE DEBRIDEMENT [place], NPO AFTER MN.
[2019-02-17 20:40] VITALS: BP 100/42
--- NOTE | 2019-02-18 03:21 | NUR ---
PATIENT ALERT AND ORIENTED X4. ON BEDREST. WOUND ON R LOWER EXT WITH DRESSING D/I. NPO AT [place] FOR DEBRIDEMENT IN AM. DAUGHTER AT BEDSIDE. IV PATENT. C/O PAIN. MED GIVEN. SLEPT MOST OF NIGHT.
[2019-02-18 03:45] VITALS: BP 158/85
[2019-02-18 03:53] VITALS: BP 109/41
--- NOTE | 2019-02-18 06:49 | NUR ---
PATIENT'S O2 SAT THIS AM WAS ONLY 83, O2 APPLIED AT 2L/NC. O2 SAT UP TO 95%.
[2019-02-18 07:28] LABS: HEMATOCRIT 25.9 % (37.0-47.0); HEMOGLOBIN 8.3 gm/dL (12.0-15.0); MCH 24.8 pg (26.0-34.0); MCV 77.5 fL (80.0-100.0); RBC 3.35 mil/uL (4.20-5.00); RDW 20.1 % (10.5-14.5); WBC 9.5 thou/uL (4.0-11.0)
[2019-02-18 07:36] LABS: CALCIUM 8.2 mg/dL (8.5-10.1); CREATININE 1.1 mg/dL (0.6-1.0); POTASSIUM 3.8 mmol/L (3.5-5.1)
--- NOTE | 2019-02-18 10:26 | NUR ---
Assess due to pt with infected chronic right leg ulcer. NPO and off unit for debridement today. EMR reviewed, hx chronic lymphedema. Has had large wt change of 60 lb loss over past year but also receives lasix and BMI is 64= extreme class III obesity. Eating 100% of meals, A1C is 6. Old records show drinks Premier drinks in past so will order while here. Low nutrition risk
[2019-02-18 11:00] VITALS: BP 101/43
--- NOTE | 2019-02-18 13:47 | NUR ---
PT A&OX4, MIDLINE INTACT IN RAKEL. SURGERY PICKED UP PT APPROX 0730 THIS AM, SHE WAS NPO SINCE MN, HCG SENT TO LAB, REPORT GIVEN TO SURGERY. PT RETURNED APPROX AT 10:30 AT THAT TIME WAS SLEEPING BUT SOON WOKE UP C/O RLE PAIN. HOOKED PT BACK TO HER EXTERNAL CATH, PO PAIN MEDS GIVEN, IV ANTIBIOTICS STARTED. FAMILY AT BEDSIDE. WILL CONT POC.
--- NOTE | 2019-02-18 15:45 | NUR ---
CARE TEAM INDICATED THAT PT IS TO HAVE SURGERY THIS WEEKEND AND SHE WILL REMAIN HOSPITALIZED OVER THE WEEKEND. CM TO FOLLOW INDICATED WITH DC PLANNING.
[2019-02-18 16:00] VITALS: BP 107/49
--- NOTE | 2019-02-18 16:01 | NUR ---
PLAN IS FOR PT TO HAVE SURGERY TODAY. FOLLOWING TO ASSIST WITH DC PLANNING. PT WILL NEED TO FOLLOW-UP WITH [facility].
[2019-02-18 19:49] VITALS: BP 108/41
[2019-02-19 00:25] VITALS: BP 114/41
[2019-02-19 03:30] VITALS: BP 112/54
--- NOTE | 2019-02-19 05:54 | NUR ---
PATIENT ALERT AND ORIENTED X4. DRESSING ON R LOWER EXTREMITY D/I. REMAINS ON BEDEST FOR THIS SHIFT. C/O PAIN. MED GIVEN WHE TIME. SLEPT MOST OF NIGHT BUT AWAKENS EASY, PT HAS AN EXTERNAL CATH. AT BEDSIDE. O2 AT 2L PER N/C.
[2019-02-19 07:51] LABS: HEMATOCRIT 26.1 % (37.0-47.0); HEMOGLOBIN 8.1 gm/dL (12.0-15.0); MCH 24.3 pg (26.0-34.0); MCV 78.3 fL (80.0-100.0); RBC 3.34 mil/uL (4.20-5.00); RDW 19.8 % (10.5-14.5); WBC 8.1 thou/uL (4.0-11.0)
[2019-02-19 08:05] LABS: CALCIUM 8.2 mg/dL (8.5-10.1); CREATININE 1.1 mg/dL (0.6-1.0)
[2019-02-19 08:07] VITALS: BP 113/57
[2019-02-19 17:06] VITALS: BP 110/48
--- NOTE | 2019-02-19 18:18 | NUR ---
REMAINED I BED TODAY, SHE HAS EXTERNAL CATH IN PLACE WHICH CONTINUES TO CAUSE A LEAK, SHE HAS BEEN CLEANED UP WITH PERICARE WITH ALOT OF DIFFUCULTY, DUE TO PAIN AND HER INABILITY TO TOLERATE FOR SHORT TIMES TO CLEAN HER. LOTS OF VISITORS TODAY, SHE HAS RIGHT UPPER ARM MID LINE IN PLACE WITH ISSUES, VANCO TROUGH WAS MISSED AT MIDNIGHT SO DONE AT 1200, RESULTS CALLED TO DR. RONALD SAUNDERSMENTS MADE RESULT WAS 21. PCT STATED PATIENT DID DECLINE HER BATH TODAY, DRESSING WAS NOT CHANGED DUE TO PAIN IN LOWER EXTREMITY. CONTINUE TO MONITOR FOR PAIN AND SAFETY.
[2019-02-19 20:30] VITALS: BP 120/62
[2019-02-20 04:15] VITALS: BP 114/44
--- NOTE | 2019-02-20 07:35 | NUR ---
PATIENT ALERT AND ORIENTED X4. AT BEDSIDE THROUGHOUT THE NIGHT. MEDICATED FOR PAIN X1 AND MUSCLE SPASMS X1. IV ABX INFUSED W/O COMPLICATION. DRESSING TO RIGHT LOWER LEG WITH DRAINAGE, HOWEVER, PATIENT DID NOT WANT DRESSING ATTENDED TO UNTIL TODAY. FEMALE CATHETER TO WALL SUCTION WITH CLEAR YELLOW URINE. 02NC 2L, PATIENT TAKES IT ON AND OFF PER HER DISCRETION. RESTING QUIETLY.
[2019-02-20 08:10] VITALS: BP 110/50
[2019-02-20 14:42] VITALS: BP 118/50
--- NOTE | 2019-02-20 19:00 | NUR ---
PT ASSESSED AT START OF SHIFT. GENERALIZED EDEMA -PITTING IN [place]ER[place] FEET. PT HAS VERY DIFFICULT TIME W/ TRANSFERS KNEES ARE BAD AND VERY PAINFUL. MAX ASSIST TO STAND W/ BELT AND WALKER. USED BSC AND HAD LARGE HARD STOOL. EATING AND DRINKING FINE. DIURESING WELL W/ LASIX. USING EXT CATHETER. RT LEG VERY PAINFUL SOME DRAINAGE NOTED TO DRESSING. PREMEDICATED FOR DSNG CHANGE FOR NOC RN TO COMPLETE.
[2019-02-20 20:20] VITALS: BP 116/54
[2019-02-21 03:50] VITALS: BP 116/49
[2019-02-21 07:45] VITALS: BP 105/31
--- NOTE | 2019-02-21 07:48 | NUR ---
ALERT AND ORIENTED.GOOD U/O VIA EXTERNAL CATHETER.AFEBRILE.DRSG CHANGE DONE TO RLE. PAIN MEDS GIVEN PRN.CALL LIGHT WITHIN REACH,
--- NOTE | 2019-02-21 14:57 | HC ---
[facility] [place] [address] CONSULTATION Name: XIN SLATER Room #: 427-P ADM IN M.R.#: [id number] Admission: 02/15/19 ������������������ Attend Phys: Stella Galicia Discharge: ������������������ Date of : 63 Report #: [id number] THIS REPORT FOR: //name// CC: Stella Galicia Physician staff AD KWAN DATE OF SERVICE: 02/17/2019 INFECTIOUS DISEASE CONSULTATION REASON FOR CONSULTATION: I was asked to evaluate concerning right lower extremity venous stasis, cellulitis. HISTORY OF PRESENT ILLNESS: The patient is a 53-year-old morbidly obese woman with chronic lymphedema and nonhealing wound to the right posterior calf. She was hospitalized in 2018, where she underwent surgical debridement along with antibiotic therapy. She then lost her insurance coverage and was lost to follow up for many months. She now returns with a week of increased discomfort, malaise, low-grade fever, and increased drainage from her right lower extremity wound. She has been off her medications and has been on no recent antibiotics. She denies any documented fever or chills at home, although on presentation she had temperature up to 38.4 degrees. She was started on vancomycin and Zosyn. This morning, she feels better. ALLERGIES: LATEX. MEDICATIONS: As noted on her MAR. Previously, had been on Xarelto and lisinopril, but has not been taking this. Now, vancomycin and Zosyn. PAST MEDICAL HISTORY: Chronic leg wound, venous stasis disease, chronic lymphedema, postmenopausal bleeding, previous sepsis, hypertension, DVT, and morbid obesity. FAMILY HISTORY: Hypertension, diabetes. SOCIAL HISTORY: Nonsmoker. No significant alcohol intake. Lives with her family. REVIEW OF SYSTEMS: She has had no headaches or neurologic issues. She has minimal activity, unable to ____ other than very short distances. No weight loss. No cardiopulmonary, GI, or complaints. Full 10-point review of systems was negative other than what is described above. PHYSICAL EXAMINATION: VITAL SIGNS: Afebrile. Maximum temp was 38.4, hemodynamically stable. [facility] [address] [place] [address] CONSULTATION Name: XIN SLATER Room #: 427-P [facility] IN M.R.#: [id number] Admission: 02/15/19 ������������������ Attend Phys: Stella Galicia Discharge: ������������������ Date of : 63 Report #: [id number] GENERAL: Alert and cooperative and pleasant, in no acute distress. Morbidly obese. SKIN: Venostasis and dermatitic changes. There is large ulceration in the posterior aspect of her right lower extremity. Associated cellulitis. There is no lymphangitic ____ without mucositis. NECK: Supple. LUNGS: Clear without adventitious sounds. HEART: Regular, without murmur, gallop, or rub. ABDOMEN: Obese, ____. NEUROLOGIC: Cranial nerves intact. Although she was generally weak, she is able to move all extremities. Unable to assess her ____. No anxiety or depression. LABORATORY STUDIES: Vancomycin level was 20, creatinine 1.2. Hemoglobin 9.3, WBC 10.17, platelets 65. Blood cultures are negative to date. CT scan of the right lower extremity showed evidence of cellulitis and wound with no obvious sign of bony abnormality. IMPRESSION: 1. Morbid obese woman with chronic lymphedema, venous stasis disease with nonhealing ulceration to her right calf. This is secondarily infected with associated cellulitis. 2. History of deep venous thrombosis. 3. Hypertension. 4. Previous noncompliance. RECOMMENDATIONS: 1. We will continue current IV antibiotic therapy while awaiting culture. The patient is to be seen by General Surgery for surgical debridement and tissue cultures. 2. We will continue with offloading and edema control. The patient should also be evaluated for weight loss diet and gastric bypass procedure. She has marked obesity and chronicity of this wound. She may end up in total limb loss. Hopefully, with control of these other environmental factors, we can gain some control of this process. ��������������������������������������������� <ELECTRONICALLY SIGNED> ���������������������������������������� By: Calvin Odom MD ��������������������������������������������� 02/21/19 [id number] [id number] Calvin Odom MD /nt
[2019-02-21 17:09] VITALS: BP 105/31
--- NOTE | 2019-02-21 17:10 | NUR ---
IT WAS DISCUSSED WITH PT AND SISTER AT BEDSIDE THIS DAY THAT PT WOULD NEED TO FOLLOW UP AT THE [facility] UPON [place]. THEY INDICATED UNDERSTANDING. IT WAS ALSO SUGGESTED THAT PT'S SPOUSE LOOK AT ADDING PT TO HIS HEALTH INSURANCE IN THE FUTURE FOR COVERAGE. CM TO FOLLOW INDICATED SHOULD ANY OTHER DC NEEDS ARISE.
--- NOTE | 2019-02-21 18:39 | NUR ---
PT A&OX4. MIDLINE INTACT IN RAKEL. TRANSFERS WITH MAX ASSIST OF 2 TO THE BSC. EXTERNAL CATH IN PLACE. BILAT LOWER EXTREMITIES CHANGED BY THIS NURSE. PT DOES NOT TOLERATE GETTING UP OR TRANSFERING WELL. SISTER AT BEDSIDE. WILL CONT POC.
[2019-02-21 19:36] VITALS: BP 132/56
[2019-02-22 04:12] VITALS: BP 107/42
--- NOTE | 2019-02-22 05:53 | NUR ---
PT C/O PAIN AT THE START OF SHIFT, MEDICATED AND REMINDED TO CALL AND ASK FOR PAIN MEDS NEEDED-SINCE THEY ARE PRN. ANYWAY, PT ALSO C/O THE EXTERNAL CATHETER NOT WORKING. I EXCHANGED IT AND ENSURED ITS WORKING. PERICARE AND DR[employer] CHUCKS PROVIDED. PT ASSISTED TO TURN IN BED WHILE THIS CARE WAS BEING PROVIDED AND IT IS REALLY DIFFICULT BECAUSE OF PAIN. DRSG TO RLE IS C/D/I.BED ADJUSTED SO BLE COULD BE ELEVATED-PT REALLY WANTS THE BED A CERTAI WAY, SO ITS DIFFICULT TO ELEVATE THE LEGS WELL.PT IS AFEBRILE. VSS. GOOD APPETITE.PT IS GENERALLY EASILY FRUSTRATED-THERAPEUTIC EAR PROVIDED.CALL LIGHT WITHIN REACH.
[2019-02-22 08:03] VITALS: BP 115/47
[2019-02-22] MEDS ORDERED: PERCOCET 10-321 EACH PO (14:20)
[2019-02-22] MEDS ORDERED: CYCLOBENZAPRINE5 MG PO (14:21)
[2019-02-22] MEDS ORDERED: METRONIDAZOLE500 M4 PO (14:21)
[2019-02-22] MEDS ORDERED: IRON325 PO (14:21)
[2019-02-22] MEDS ORDERED: PROBIOTIC1 EAC1 PO (14:21)
[2019-02-22] MEDS ORDERED: CEFDINIR300 MG PO (14:21)
[2019-02-22] MEDS ORDERED: SENNA-TIME S T1 EACH PO (14:21)
[2019-02-22] MEDS ORDERED: LASIX 40 MG TAB40 M2 PO (14:38)
[2019-02-22] MEDS ORDERED: SSD CREAM 1% 5050 GM TOP (15:18)
[2019-02-22] MEDS ORDERED: ASA5UEC PO (15:20)
[2019-02-22 16:39] VITALS: BP 105/31
--- NOTE | 2019-02-22 16:46 | NUR ---
CARE TEAM INDIATED PT IS MEDICALLY STABLE TO DC HOME THIS DAY. CM VOUCHERED PT'S MEDS IN OP PHARMACY FOR THE AMOUNT OF $113.30. CM TO [facility] TO TAKE PT HOME AFTER 7:00 WHEN HER SPOUSE GETS OFF WORK. PT IS TO BE GIVEN WOUND CARE SUPPLIES. PT IS TO FOLLOW UP AT [facility] SHE IS AWARE AND AGREEABLE. NO OTHER CM INTERVENTION INDICATED. CASE CLOSED.
[2019-02-22 17:32] VITALS: BP 106/42
[2019-02-22 19:44] VITALS: BP 138/58
--- NOTE | 2019-02-22 19:47 | NUR ---
ASSUMED CARE OF PT AT APPROX 0700. PT IS ALERT AND ORIENTED X4, ASSESSMENT CHARTED, ABLE TO MAINTAIN O2 SAT >90. ASSESSMENT CHARTED. DENIES SOA. EVEN NON LABORED BREATHING. WOUND CARE PERFORMED. PICTURES TAKEN. SUN NIGHT CLERK PRINTED PICTURE. PT COMPLAINS OF PAIN THAT IS PARTIALLY RESOLVED WITH PAIN MEDICATIONS. RECIEVED ORDER FOR DC. RX FILLED FOR PT IN OUTPT PHARMACY. FAMILY VERY MAD AND UPSET THAT PT IS LEAVING WITH NO PAIN MEDICATIONS. REFUSED TO LEAVE WITH [facility] TRAN[facility] DUE TO NO P[AIN MEDICATIONS. AFTER SPEAKING WITH HOUSE SUP PT HAS TO LEAVE BECAUSE WE CANNOT FILL PAIN MEDICATION FOR PT. CALLED TO SET UP TRANSPORTATION AGAIN. WILL BE BACK FOR PT AT APPROX 930-10. PT WAS GIVEN PLENTY SUPPLIES FOR WOUND CARE WELL. REVIEWED DC INSTURCTIONS AND ALL NEW MEDICATIONS WITH PATIENT AND FAMILY MEMBER. FAMILY MEMBER REMAINS VERY UPSET THAT PT IS LEAVING WITH NO PAIN MEDIATION AND NO HELP AT HOME TO CARE FOR PT, STATING THAT PT CANNOT DO THIS HERSELF. AND STATES THAT WE ARE "SENDING HER HOME TO SUFFER." EXPLAINED TO FAMILY AND PATIENT THAT THERE IS NO LONGER ACUTE MEDICAL NECESITY AND WE HAVE PROVIDED PT WITH FOLLOWUPS, RX, ADNW OUND SUPPLIES. APOLOGIZED THAT SHE FELT THAT WE WERE NOT MEETING THE PATIENTS NEEDS. PT IS CURRENTLY WAITING FOR TRANSPORTATION TO ARRIVE.
== END 2019-02-22 21:25 | disposition home or self-care (01) | DRG 579 ==
LOC: ER 18:56 → EROBS 20:56 → 4E 20:56
PROVIDERS: Emergency Medicine; Hospitalist; Nurse Practitioner Acute Care; ADMIT Hospitalist
PROC: 0KBS0ZZ Excision of Right Lower Leg Muscle, Open Approach (ICD-10-PCS; principal; 2019-02-18)
DX: L03.115 Cellulitis of right lower limb (principal); E43 Unspecified severe protein-calorie malnutrition; Z68.44 Body mass index [BMI] 60.0-69.9, adult; L97.219 Non-pressure chronic ulcer of right calf with unspecified severity; I10 Essential (primary) hypertension; E66.01 Morbid (severe) obesity due to excess calories; D63.8 Anemia in other chronic diseases classified elsewhere; I87.2 Venous insufficiency (chronic) (peripheral); Z86.718 Personal history of other venous thrombosis and embolism; Z91.14 Patient's other noncompliance with medication regimen; Z79.01 Long term (current) use of anticoagulants; Z79.899 Other long term (current) drug therapy; Z91.040 Latex allergy status; Z82.49 Family history of ischemic heart disease and other diseases of the circulatory system; Z83.3 Family history of diabetes mellitus
CPT/HCPCS: 10084; 10183; 27000; 50010; 50101; 50386; 57091; 57119; 57120; 70005